=== PATIENT | male | born 1950 | race Caucasian/White ===

== ENCOUNTER → 2023-05-10 15:06 | Outpatient (REF) | payer MEDICARE, OTHER, SELFPAY | LOC: HWRAD 15:06 | PROVIDERS: ATTENDING PHYSICIAN Nurse Practitioner Family | DX: R05.9 Cough, unspecified (principal) | CPT/HCPCS: 71046 ==

== ENCOUNTER 2023-05-13 06:33 | Inpatient (IN) | payer MEDICARE, OTHER, SELFPAY ==
[2023-05-13] VITALS (19 sets, daily range): BP systolic 108–136; BP diastolic 60–78; PULSE 101–125; O2SAT 93; BMI 25.3; BMI 25.1
--- NOTE | 2023-05-13 04:14 | EDRN ---
Pt has PICC L arm - VAT called to notify and draw blood.
--- NOTE | 2023-05-13 04:19 | EDRN ---
VAT at bedside
--- NOTE | 2023-05-13 04:28 | ED.GENMED ---
History of Present Illness
General
Chief Complaint: Breathing Problem
Source: patient and spouse
Exam Limitations: none
Time Seen by Provider: 05/13/23 04:02
Nursing documentation reviewed up to this point in time: agreed with
Travel History
Have you had any contact with someone who has COVID-19?: No
Do you have any symptoms of coronavirus? Fever > 100 degrees, chills, cough, shortness of breath, sore throat, loss of taste or smell, muscle aches, or headache?: No
History of Present Illness
History of Present Illness:
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 He follows with specialist at
[facility].
He complains of over 10-day history of cough, progressively worse with low-grade fever over the past several days. Was evaluated by his primary care physician on May 10 and underwent outpatient chest x-ray May 10 showing bilateral
interstitial parenchymal opacities throughout the right lung and in the left upper lobe concerning for interstitial pneumonia. He was started on 10-day course of Levaquin 750 mg on May 10.
He has been using his leave albuterol nebulizer twice daily but complains of persisting cough, generalized weakness that has worsened throughout the day today with onset of hypoxia with pulse ox in the 70s to 80s tonight, early intervention specialist prompting ED
visit. Cough had been nonproductive but he now notes whitish phlegm production tonight. He denies leg pain or swelling.
No close contacts with similar symptoms. No recent travel.
Testing for COVID-19, influenza and RSV on May 10 all returned negative.
He has history of bilateral pneumonia 1 month after stem cell transplant September 2022, treated with antibiotic and a persistent cough required a course of oral steroids which were then discontinued.
Tacrolimus was discontinued 1 month ago.
He has left upper extremity PICC line in place for frequent CBCs. PICC line is scheduled for removal next week and he has an appointment with his transplant specialist at [place] on May 16.
Past History
Past History
ED Past Medical History: Asthma, HTN, Hypercholesterolemia, NIDDM (Impaired fasting glucose) and Other (Pneumonia, myelodysplastic disorder status post stem cell transplant September 2022; prior history of C. difficile colitis)
ED Past Surgical History: Appendectomy and Other (Bone marrow transplant September 2022)
Social History
Tobacco: Former smoker (Quit smoking over 10 years ago)
Alcohol: None
Personal:
Living: with family
Employment: Retired
Family History
Family History: Other (Noncontributory)
Phy Exam
Physical Exam
Physical Exam:
GENERAL: 80-year-old gentleman appears his stated age, awake and alert, mild to moderate resting tachypnea initially with initial pulse ox in the 80s. Resolution of tachypnea with nasal cannula oxygen at 3 L. Pulse ox is improved to 96 to 98%.
EYE: anicteric
NECK: Supple, nontender, no meningismus, no significant adenopathy. No JVD.
ENT: Lips are dry. Oral mucosa is minimally dry. No rhinorrhea.
CARDIAC: Regular rate and rhythm. no murmur.
LUNGS: Mild resting tachypnea, fine, scattered rhonchi clear with cough.
ABDOMEN: Soft, nondistended, without focal tenderness, normoactive BS.
NEUROLOGICAL: Alert and oriented x3, no focal neuro deficits.
SKIN: Mildly hot to touch and dry, normal color, skin intact. No rash.
MUSCULOSKELETAL: No C/C/E. peripheral pulses are full and equal b/l. No palpable tenderness.
PSYCH: Normal and appropriate interaction.
Scores
Heart Failure Risk
Heart Failure Risk Score: Not Applicable
Course
Orders/Labs/Results
Orders:
Orders
05/13/23 04:07
EKG [Electrocardiogram (*1)] Urgent
Reason for Study: Shortness of Breath
EKG- Treatment ONCE
05/13/23 04:10
CR Chest - 2 Views Urgent
Comment:
Reason For Exam: cough, hypoxia
05/13/23 04:31
Complete Blood Count/With Diff Urgent
Comprehensive Metabolic Panel Urgent
Lactic Acid Urgent
NT-proBNP Urgent
Procalcitonin Urgent
PCT Algorithmm Indication: Respiratory
Troponin I Urgent
05/13/23 05:28
COVID-19 Antigen Urgent
Source: Nasal Swab
Influenza A+B Rapid Molecular Urgent
LUX Source: Nasal Swab
Specimen Description:
05/13/23 05:38
Levalbuterol [Xopenex 1.25 mg Inhalant Solution] 1.25 mg INH R NOW STA
05/13/23 05:39
Sputum Culture [Respiratory Culture/Gram Stain] Urgent
LUX Source: Sputum
Specimen Description:
Abnormal Lab Results
05/13/23
04:31
WBC 13.6 H 10^3/uL
(4.8-10.8)
RBC 2.36 L 10^6/uL
(4.70-6.10)
Hgb 9.0 L g/dL
(13.0-18.0)
Hct 25.6 L %
(39.0-52.0)
MCV 108.5 H fL
(80.0-94.0)
MCH 38.1 H pg
(27.0-31.0)
Abs Immat Gran (auto) 0.2 H 10^3/uL
(0-0.05)
Absolute Neuts (auto) 11.4 H 10^3/uL
(1.4-6.5)
Absolute Lymphs (auto) 0.5 L 10^3/uL
(1.2-3.4)
Absolute Monos (auto) 1.3 H 10^3/uL
(0.1-0.6)
Immature Gran % 1.1 H %
(0-0.5)
Neutrophils % 84.2 H %
(42.2-75.2)
Lymphocytes % 3.5 L %
(20.5-51.1)
Monocytes % 9.4 H %
(1.7-9.3)
Glucose 126 H mg/dl
(70-99)
Alkaline Phosphatase 159 H U/L
(38-126)
Total Protein 6.1 L g/dl
(6.3-8.2)
Albumin 3.4 L g/dl
(3.5-5.0)
05/13/23 04:31
05/13/23 04:31
Vital Signs
Initial and Last Documented VS:
Initial Vital Signs
Temp Pulse Resp BP Pulse Ox
98.8 F 114 24 136/73 86
05/13/23 03:53 05/13/23 03:53 05/13/23 03:53 05/13/23 03:53 05/13/23 03:53
Last Documented Vital Signs
Temp Pulse Resp BP Pulse Ox
98.8 F 106 20 124/70 93
05/13/23 03:53 05/13/23 06:00 05/13/23 06:00 05/13/23 06:00 05/13/23 06:00
MDM/Problems Addressed
Differential Diagnosis Includes:
Acute hypoxic respiratory failure with over 1 week history of cough, low-grade fever. Recent chest x-ray showing lacy interstitial fullness concerning for interstitial pneumonia.
Concern for atypical pneumonia such as viral pneumonia, bacterial interstitial pneumonitis.
Although tacrolimus discontinued 1 month ago, not currently on oral steroids he is maintained on inhaled corticosteroids and maintained on atovaquone for PCP prophylaxis. Must consider atovaquone failure�acute PCP pneumonia.
Other consideration is interstitial fibrosis, exacerbation of asthma, CHF.
No prior history of thromboembolism.
Will check labs including BNP, procalcitonin. Will check chest x-ray.
If sputum produced will collect sample.
Due to acute hypoxic respiratory failure requiring supplemental oxygen patient will require acute hospitalization.
Chronic conditions affecting care: DM (Impaired fasting glucose), HTN, Asthma and Immunosuppressed
*Radiology
Radiology exam reviewed: radiology read reviewed (Chest x-ray shows interval increase in density of any irregular shaped airspace opacities in both lungs with increased interstitial markings consistent with severe bilateral pneumonia.)
*Pulse Oximetry
Patient hypoxic: yes
*EKG
Interpreted by ED Provider?: Yes
Comparison EKG: no comparison EKG present
Rate: normal
Rhythm: sinus
[place]: normal axis
Interval: normal interval
QRS Pattern: normal QRS
Ischemia: no ischemia
*[place]ward Interpretation
Rate: normal
Interpretation: normal
Rhythm: sinus
*Critical Care Note
Total Time (30-74mins, 75-104mins- exclusive of procedures): Not Applicable
Update Note
Update Note:
Chest x-ray shows worsening bilateral interstitial infiltrates concerning for viral pneumonitis, bacterial interstitial pneumonitis, acute inflammatory interstitial disease is also a possibility, PCP pneumonitis is a possibility as well.
Clearly he has failed broad-spectrum outpatient antibiotics. This along with acute hypoxic respiratory failure he requires acute hospitalization.
He does have prior history of C. difficile, maintained on vancomycin 125 mg twice daily.
Patient will require broadening of antibiotics and thus is at risk for recurrent C. difficile colitis.
Labs show mildly elevated white blood cell count of 13.6, mild anemia with hemoglobin of 9.0, macrocytic indices. Left shift.
Chemistries show minimally elevated random glucose of 126, troponin is negative. BNP unremarkable of 382.
Procalcitonin is pending.
Will admit to hospitalist service.
Will discuss antibiotic coverage with adniting hospitalist.
ED Attending Note
-
Portions of this chart may have been created with voice recognition software.� Occasional wrong word or��sound alike� substitutions may have occurred due to the inherent limitations of voice recognition software.
Discharge Plan
Departure
Patient Disposition: Admit
Date of Disposition: 05/13/23
Time of Disposition: 05:26
Admit to: Telemetry
Admit to doctor: Adolph
Presentation/result/management discussed w/ accepting MD/DO: Hospitalist
Condition: Fair
Discharge Problem:
Bilateral interstitial pneumonia, Acute hypoxemic respiratory failure, Bone marrow transplant status
Prescriptions:
No Action
atorvastatin 10 mg Tablet
10 mg PO QPM
valacyclovir 1 gram Tablet
1,000 mg PO DAILY
vancomycin 125 mg Capsule
125 mg PO Q12H
famotidine 20 mg Tablet
20 mg PO BID
amlodipine 10 mg Tablet
10 mg PO DAILY
budesonide 0.25 mg/2 mL Suspension For Nebulization
0.25 mg INHALATION BID
levalbuterol HCl 1.25 mg/3 mL Solution For Nebulization
1.25 mg INHALATION BID
multivitamin with minerals Tablet
1 tab PO DAILY
hydrocortisone 2.5 % Ointment
1 applic TOPICAL TID
Patient Comments:
on head
ipratropium bromide 0.02 % Solution
2.5 ml INHALATION BID
atovaquone 750 mg/5 mL Suspension
1,500 mg PO DAILY
voriconazole 200 mg Tablet
200 mg PO BID
cholecalciferol (vitamin D3) 25 mcg (1,000 unit) Tablet
25 mcg PO DAILY
guaifenesin [Mucinex] 600 mg Tablet Extended Release 12hr
600 mg PO BID
levofloxacin [Levaquin] 750 mg Tablet
750 mg PO DAILY
Referrals:
Flaquito Chavez CRNP [Family Provider] -
Interventions
Interventions:
*Risk Screen - Suicide Last Done: 05/13/23 03:53
*General Assessment Last Done: 05/13/23 03:53
*Neglect/Abuse Screening Last Done: 05/13/23 03:53
ED- Fall Risk Assessment Last Done: 05/13/23 04:59
*ED COVID-19 Vaccine History Last Done: 05/13/23 04:05
ED- Cardiac Assessment Last Done: 05/13/23 04:15
ED- Pulmonary Assessment Last Done: 05/13/23 04:15
[2023-05-13 04:43] LABS: % Basophils 0.5 % (0-2); % Eosinophils 1.3 % (0-6); % Immature Granulocytes 1.1 % (0-0.5); % Lymphocytes 3.5 % (20.5-51.1); % Monocytes 9.4 % (1.7-9.3); % Neutrophils 84.2 % (42.2-75.2); Absolute Basophils 0.1 10^3/uL (0-0.2); Absolute Eosinophils 0.2 10^3/uL (0-0.7); Absolute Immature Granulocytes 0.2 10^3/uL (0-0.05); Absolute Lymphocytes 0.5 10^3/uL (1.2-3.4); Absolute Monocytes 1.3 10^3/uL (0.1-0.6); Absolute Neutrophils 11.4 10^3/uL (1.4-6.5); Hematocrit 25.6 % (39.0-52.0); Mean Corp Hgb Conc. 35.2 g/dL (33.0-37.0); Mean Corpuscular Hgb 38.1 pg (27.0-31.0); Mean Corpuscular Volume 108.5 fL (80.0-94.0); Mean Platelet Volume 9.6 fL (7.4-10.4); Nucleated Red Blood Cells % 0 % (-); Platelet Count 296 10^3/uL (130-400); Red Blood Cell Count 2.36 10^6/uL (4.70-6.10); Red Cell Dist. Width 12.7 % (11.5-14.5); White Blood Cell Count 13.6 10^3/uL (4.8-10.8)
[2023-05-13 05:03] LABS: Lactic Acid 0.9 mmol/L (0.7-2.0)
[2023-05-13 05:11] LABS: ALT (SGPT) 49 U/L (0-50); AST (SGOT) 43 U/L (17-59); Albumin 3.4 g/dl (3.5-5.0); Alkaline Phosphatase 159 U/L (38-126); Blood Urea Nitrogen 20 mg/dl (9-20); Calcium 8.8 mg/dl (8.4-10.2); Carbon Dioxide 24 mmol/L (22-30); Chloride 106 mmol/L (98-107); Estimated Creatinine Clearance 65 ml/min; Glucose 126 mg/dl (70-99); Potassium 4.1 mmol/L (3.5-5.1); Sodium 136 mmol/L (135-145); Total Bilirubin 0.5 mg/dl (0.2-1.3); Total Protein 6.1 g/dl (6.3-8.2); eGFR > 60.00
[2023-05-13 05:14] LABS: Procalcitonin 0.11 ng/ml (0.0-0.25)
[2023-05-13 05:17] LABS: NT-proBNP 382 pg/ml; Troponin I < 0.012 ng/ml
[2023-05-13] MEDS: XOPENEX 1.25 MG INHALANT SOLUTION INH (05:47)
[2023-05-13 06:11] LABS: COVID-19 Antigen Negative (Negative)
--- NOTE | 2023-05-13 06:29 | HPS.HSE ---
Family Physician
-
Family Physician: TIMO Kaiser
Chief Complaint
-
SOB
History of Present Illness
Patient is a 72y M with PMH significant for MDS s/p bone marrow transplant who presents to ED complaining of SOB. Patient states that he has a chronic, hacking cough. He noted a change in the quality of his cough on Sunday with some mucus
production, increased fatigue and increased SOB. He noted temperatures at home 99 to 100.4. He was seen by his PCP on and tested for COVID, flu and RSV (which were reportedly negative). He was sent for CXR which showed bilateral
infiltrates and was started on levofloxacin 750mg daily. Patient states that he has not felt improved despite the abx. He notes that his symptoms have progressed with worsening dyspnea and fatigue. This evening, he noted his SpO2 at home fell
into the 70s and he presented to the ED for further evaluation.
Patient underwent bone marrow transplant at [facility] in September 2022 for MDS.
notes that patient developed patchy bilateral opacities following his transplant and he was treated with high doses of steroids for this.
He remains on some prophylactic medications; although he is no longer on prednisone or immunosuppressant medications according to his current med list.
Medical History
Past Medical History
Past Medical History: Reports Other
Additional Past Medical History:
Myelodysplastic Syndrome
Hypertension
Cough Variant Asthma
Benign Essential Tremor
CDiff Colitis
Past Surgical History: Reports Other
Additional Past Surgical History:
T&A
Bone Marrow Transplant
Social History
Tobacco: Former Smoker
Alcohol: None
Drug: None
Personal:
Living: With Family
Family History
Family History: Not pertinent
Allergies / Home Medications
Allergies reflects when Allergies were last updated in [facility].
Home Medications with original date entered in [facility]
Allergy/Medication List:
Allergies
Allergy/AdvReac Type Severity Reaction Status Date / Time
No Known Allergies Allergy Unverified 05/13/23 04:00
Home Medications
amlodipine 10 mg tablet 10 mg PO DAILY 05/13/23
atorvastatin 10 mg tablet 10 mg PO QPM 05/13/23
atovaquone 750 mg/5 mL oral suspension 1,500 mg PO DAILY 05/13/23
budesonide 0.25 mg/2 mL suspension for nebulization 0.25 mg inhalation BID 05/13/23
cholecalciferol (vitamin D3) 25 mcg (1,000 unit) tablet 25 mcg PO DAILY 05/13/23
famotidine 20 mg tablet 20 mg PO BID 05/13/23
guaifenesin 600 mg tablet, extended release 12 hr (Mucinex) 600 mg PO BID 05/13/23
hydrocortisone 2.5 % topical ointment 1 applic topical TID 05/13/23
ipratropium bromide 0.02 % solution for inhalation 2.5 ml inhalation BID 05/13/23
levalbuterol HCl 1.25 mg/3 mL solution for nebulization 1.25 mg inhalation BID 05/13/23
levofloxacin 750 mg tablet 750 mg PO DAILY 05/13/23
multivitamin with minerals 1 tab PO DAILY 05/13/23
valacyclovir 1 gram tablet 1,000 mg PO DAILY 05/13/23
vancomycin 125 mg capsule 125 mg PO Q12H 05/13/23
voriconazole 200 mg tablet 200 mg PO BID 05/13/23
Review of Systems
-
History Source: Patient
A 12 point ROS was completed and negative except as noted: Yes
Constitutional: Reports Fever and Fatigue; Denies Night Sweats or Chills
EENT: Denies Sore Throat
Respiratory: Reports Cough and Trouble Breathing; Denies Hemoptysis
Cardiac: Denies Chest Pain, Diaphoresis or Palpitations
Abdomen/GI: Denies Abdominal Pain, Nausea, Vomiting or Diarrhea
: Denies Dysuria, Frequency or Flank Pain
Musculoskeletal: Denies Joint Pain or Edema
Neurological: Denies Dizzy or Headache
Psych: Denies Depression or Anxiety
Physical Exam
Vital Signs
Vital Signs
Temp Pulse Resp BP Pulse Ox
98.8 F 106 20 124/70 93
05/13/23 03:53 05/13/23 06:00 05/13/23 06:00 05/13/23 06:00 05/13/23 06:00
Physical Exam
General: Other (72y M in no acute distress.)
HEENT: Moist mucous membranes and PERRLA
Respiratory: Other (Rales scattered throughout all lung hernandez. No wheezes / rhonchi.)
Cardiac: S1/S2 and Regular Rhythm; No Murmur
GI: Soft, Non Tender, Non Distended and Normal Bowel Sounds
Musculoskeletal: No Clubbing, No Cyanosis and No Edema
Neuro: AO x 3
Laboratory Results
-
05/13/23 04:31
05/13/23 04:31
Laboratory Results
Lactic Acid 0.9 mmol/L (0.7-2.0) 05/13/23 04:31
Total Bilirubin 0.5 mg/dl (0.2-1.3) 05/13/23 04:31
AST 43 U/L (17-59) 05/13/23 04:31
ALT 49 U/L (0-50) 05/13/23 04:31
Alkaline Phosphatase 159 U/L (38-126) H 05/13/23 04:31
Troponin I < 0.012 ng/ml 05/13/23 04:31
Impression/Plan
-
A/P: Patient is a 72y M with PMH significant for asthma, HTN and MDS s/p bone marrow transplant who presents to ED c/o fatigue, SOB and hypoxemia.
Acute Hypoxemic Respiratory Failure
Bilateral Pneumonia / Pneumonitis
- Admit for further evaluation and treatment.
- CXR with significant patchy bilateral infiltrates.
- Diffuse rales on exam c/w viral or inflammatory process.
- Procal is normal, COVID / influenza are negative (and reportedly were as OP as well).
- Would hold further levofloxacin or other abx for now.
- IV steroids for possible inflammatory process.
- Supportive care, supplemental O2, nebs, etc.
- Pulmonary evaluation for additional work-up / recommendations.
- ? PJP pneumonia. Patient is on atovaquone for prophylaxis.
- Follow for clinical improvement.
MDS
- Stable. Hgb slightly decreased from recent baseline (10) and WBC slightly increased.
- Continue current prophylactic medications.
- Follow cell counts for changes.
- Patient is followed at [facility]. Dr. David / Melissa Lincoln.
CDiff Colitis
- Patient had loose stools for quite some time following transplant.
- Diagnosed with CDiff colitis 2 months ago and has been on tapering vancomycin since that time.
- Taper was halted given recent pneumonia / abx.
- Hold further abx for pneumonia as noted above.
- Continue vancomycin at current dose / frequency for now. Can resume taper as an outpatient.
- Follow for any changes in bowel habits.
Cough Variant Asthma
- Patient is on budesonide maintenance.
- Uses Xopenex MDI infrequently.
- No wheezing on exam and no significant increase in cough to suggest acute exacerbation.
Benign Hypertension
- BP is stable. Continue amlodipine.
DVT Prophylaxis: Lovenox
Code Status: Full
[2023-05-13] MEDS: FIRVANQ PO (10:07)
[2023-05-13] MEDS: NORVASC PO (10:07)
[2023-05-13] MEDS: PEPCID PO (10:07)
[2023-05-13] MEDS: VALTREX PO (10:08)
[2023-05-13] MEDS: DECADRON 4 MG IV ×2 (10:09→16:50)
[2023-05-13] MEDS: VFEND PO (10:09)
[2023-05-13] MEDS: MUCINEX 600 MG PO ×2 (10:10→20:50)
[2023-05-13] MEDS: MEPRON SUSPENSION 1500 MG PO (10:10)
[2023-05-13 12:23] LABS: Iron 34 ug/dl (49-181)
[2023-05-13 12:34] LABS: Percent Saturation 19 % (20-50); Total Iron Binding Capacity 175 ug/dl (261-462)
[2023-05-13 12:44] LABS: Erythrocyte Sed Rate 109 mm/hour (0-20)
[2023-05-13 13:15] LABS: Vitamin B12 381 pg/ml (239-931)
--- NOTE | 2023-05-13 13:54 | W.PN.UPDATE ---
Update Note
Progress Note Update
Lab/images/charts reviewed
Seen and examined
History of MDS status postchemotherapy, status post allogenic stem cell transplant on September 21, 2022 -post transfer patient had developed pneumonia and at that time it was felt to be related to posttransplant reaction. patient was started on high-dose
steroids (per family 1 g/d) with which patient symptoms improved.
Today chest x-ray showing bilateral patchy infiltrates.
Pulmonology and ID involved in care. ID recommended for patient to be started on azithromycin for atypical coverage. Check sputum culture/Legionella/Streptococcus pneumonia urine antigen/respiratory viral panel.
I discussed with transplant center in agreement with trial of steroids and patient started on methylprednisolone 50 mg IV every 8 hours. Discontinue IV dexamethasone 4 mg every q8h.
IV Protonix for GI prophylaxis.
If no response with steroid therapy will require bronc with biopsy or transfer to [facility],
--- NOTE | 2023-05-13 13:58 | CON.ID ---
Addendum entered and electronically signed by Christine Concepcion MD 05/13/23 15:39:
rash on bilateral cheeks
Original Note:
Consultation
-
Date/Time Consultation Requested: 05/13/23 13:45
Date/Time Consultation Performed: 05/13/23 13:58
Requesting Provider: Dr Tamayo
Performing Provider: Dr Concepcion
Reason for Consultation: bilateral Pneumonia in immunocompromised pt
Chief Complaint / Past History
Chief Complaint
shortness of breath
History of Present Illness
Mr Henry is a 72 year old male s/p BMT September 2022 following with [facility] (h/o lung GVHD post transplant, on vori/valacyclovir/atovaquone ppx; tacrolimus stopped a few months ago per patient) who presented here today for fever, 10 day history of cough -
nonproductive. Saw his PCP 05/10 and CXR done notable for interstitial infiltrates throughout the right lung and the Left upper lobe. He was started on levofloxacin 750 05/10 (3 days ago) as well as albuterol however cough has been progressive and
he has new onset hypoxia with pulse Ox 70-80s today prompting him to present here. Today cough progressed from nonproductive to productive of whitish phlegm. Testing for COVID-19, influenza and RSV on May 10 all returned negative. No sick
contacts or travel. Of note with PICC line for frequent blood draws and is scheduled for removal 05/16.
Reports a history of bilateral lung infiltrates shortly after transplant diagnosed as GVHD and treated with steroids
Reports a history of months of diarrhea, then had colonoscopy at [facility] in [place], colonoscopy 'fine' but C diff diagnosed. They were going to complete a short course of oral vanc but when diagnosed with pneumonia then oral vanc prophylaxis was continued
Past History
Additional Past Medical History:
Asthma, HTN, Hypercholesterolemia, NIDDM (Impaired fasting glucose) and Other (Pneumonia, myelodysplastic disorder status post stem cell transplant September 2022; prior history of C. difficile colitis)
Additional Past Surgical History:
Appendectomy and Other (Bone marrow transplant September 2022)
Allergy History:
No Known Allergies Allergy (Unverified 05/13/23 04:00)
Medications Reviewed: Yes
Social History
Tobacco: Former Smoker
Alcohol: None
Personal:
Family History
Family History: Not Pertinent
Review of Systems
Review of Systems
General: Negative Fever or Chills
All systems: All other systems were reviewed and were negative
Vital Signs
Temp Pulse Resp BP Pulse Ox
98.8 F 96 18 119/70 94
05/13/23 03:53 05/13/23 12:00 05/13/23 12:00 05/13/23 12:00 05/13/23 12:00
Physical Exam
Physical Exam
Constitutional: No Acute Distress
Cardiovascular: Regular Rate and S1/S2; Negative Murmur or Rub
Pulmonary: Clear and Symmetric; Negative Wheezes, Rales or Rhonchi
Gastrointestinal: Soft, Non Tender, Non Distended and Normal Bowel Sounds
Skin: Warm and Dry; Negative Rash or Jaundice
Lab / Diagnostic Study Results
05/13/23 04:31
05/13/23 04:31
Abs Immat Gran (auto) 0.2 10^3/uL (0-0.05) H 05/13/23 04:31
Absolute Neuts (auto) 11.4 10^3/uL (1.4-6.5) H 05/13/23 04:31
Absolute Lymphs (auto) 0.5 10^3/uL (1.2-3.4) L 05/13/23 04:31
Absolute Monos (auto) 1.3 10^3/uL (0.1-0.6) H 05/13/23 04:31
Absolute Basos (auto) 0.1 10^3/uL (0-0.2) 05/13/23 04:31
Immature Gran % 1.1 % (0-0.5) H 05/13/23 04:31
Neutrophils % 84.2 % (42.2-75.2) H 05/13/23 04:31
Lymphocytes % 3.5 % (20.5-51.1) L 05/13/23 04:31
Monocytes % 9.4 % (1.7-9.3) H 05/13/23 04:31
Eosinophils % 1.3 % (0-6) 05/13/23 04:31
Basophils % 0.5 % (0-2) 05/13/23 04:31
ESR 109 mm/hour (0-20) H 05/13/23 11:36
Lactic Acid 0.9 mmol/L (0.7-2.0) 05/13/23 04:31
C-Reactive Protein 225.70 mg/L (0.0-10.00) H 05/13/23 11:36
Procalcitonin 0.11 ng/ml (0.0-0.25) 05/13/23 04:31
Microbiology Results
Micro:
05/13/23 05:28 Influenza Types A & B (YANELIS) - Final
Nasal Swab Negative for Influenza A & B, NAAT
Negative results must be combined with clinical observations
and patient history.
Nucleic Acid Amplification test (NAAT)performed on the
[email or web address] ID NOW platform.
Assessment / Plan
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
Immunosuppression
Pneumonia
H/o Lung gvhd
H/o C difficile
- GVHD on the differential with recent cessation of tacrolimus, interstitial pattern, history suggestive of previous GVHD of the lungs, rash but is a diagnosis of exclusion, will leave a message for his transplant team
- discussed with pulmonary - I would request lung biopsy if safe/feasible and no other diagnosis made
- blood cultures x2 now
- sputum culture if able to obtain
- legionella and s pneumo urine ags
- covid ag negative here again for a total of two negative covid tests this week
- influenza pcr neg
- resp viral panel ordered
- crp notable at 225, procal 0.11
- CT chest ordered
- on ppx with atovaquone, valacyclovir and vori
- stop levofloxacin, start azithromcyin (lower risk of recurrent c diff)
- follow qtc, was acceptable
- not on steroids chronically
- Dr Worley director business integration for [facility] - called and reviewed with him, he is in agreement with trial of steroids and will start, he will notify Dr Montemayor and if she prefers transfer then I would help arrange
- start methylpred 50 mg IV q8hrs
- protonix while on high dose steroids - ulcer ppx
- if no response to steroids then would request bronch with biopsy
- follow clinically
Care Review
Plan reviewed with: Physician (Dr Mathis)
[2023-05-13 14:38] LABS: LDH 241 U/L (120-246)
--- NOTE | 2023-05-13 15:00 | CON.PUL ---
Addendum entered and electronically signed by Davis Mathis MD 05/13/23 15:35:
Reviewed CT chest. Primarily interstitial process, biapical predominant. No evidence of nodular consolidation.
Would prefer repeat chest x-ray 05/14 which I ordered
If significant improvement with 24 to 48 hours of steroids, may be able to avoid bronchoscopic evaluation
Will also await input from [facility] team (Kimberlee Montemayor)
Original Note:
Consultation
Consultation Request
Date/Time Consultation Requested: 05/13
Date/Time Consultation Performed: 05/13
Reason for Consultation: Hypoxia, abnormal chest x-ray
Medical History
-
History of Present Illness:
History obtained from the patient, family at bedside, reviewing hospital records and outpatient records. 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 This was complicated by
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 He was discharged 11/07/2022 on oxygen therapy. He has been off
oxygen therapy since fall 2022, doing well. Of note he was on tacrolimus therapy recently discontinued March 2019 for which she was doing well according to the patient. He remains on voriconazole and valacyclovir therapy in the interim.
05/09/2023, he noted increased shortness of breath, hypoxia at night, low-grade fevers with progress. Through his primary physician and communication with [facility] transplant team he was started on Levaquin therapy. Despite this he had increased
shortness of breath and noticed worsening oxygenation, saturation 70% worse while lying flat. For this reason he brought himself into [facility]. Upon arrival, afebrile, pulse 114, breathing at 24, blood pressure 136/73, 86%. Chest x-ray
suggesting worsening interstitial changes when compared to x-ray from just 1 week prior. Procalcitonin was normal. Patient was given IV Decadron but otherwise no other antibiotics provided. Of note patient is on atovaquone therapy at home.
Presently he is feeling well, on oxygen therapy. Denies hemoptysis, nausea, abdominal pain, diarrhea, falls, syncope. His diarrhea resolved since being on oral vancomycin
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
history of C. difficile colitis March 2023 treated with oral vancomycin hospitalized at [facility], hyperlipidemia, colon polyps, benign tremor, tonsillectomy, bone marrow biopsy January 2022. Mild sleep apnea not on therapy
Past Medical History
Past Medical History: None (See above)
Past Surgical History: None (See above)
Social History
Tobacco: Former Smoker ([id number], quit age 23. Occasional cigar rare)
Alcohol: None
Drug: None
Personal:
Living: With Family
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 Was in the [employer]. Denies tuberculosis exposure)
Family History
Family History: Other (Father from alcoholism/suicide fifth decade. Mother from COPD seventh decade. Daughter with asthma, sister with asthma. Family history negative for thromboembolic disease, lung cancer)
Allergies / Home Medications
Allergies
Allergy/AdvReac Type Severity Reaction Status Date / Time
No Known Allergies Allergy Unverified 05/13/23 04:00
Home Medications
Medication Instructions Recorded Confirmed Last Taken Type
amlodipine 10 mg tablet 10 mg PO DAILY 05/13/23 05/13/23 Unknown History
atorvastatin 10 mg tablet 10 mg PO QPM 05/13/23 05/13/23 Unknown History
atovaquone 750 mg/5 mL oral 1,500 mg PO DAILY 05/13/23 05/13/23 Unknown History
suspension
budesonide 0.25 mg/2 mL suspension 0.25 mg inhalation BID 05/13/23 05/13/23 Unknown History
for nebulization
cholecalciferol (vitamin D3) 25 25 mcg PO DAILY 05/13/23 05/13/23 Unknown History
mcg (1,000 unit) tablet
famotidine 20 mg tablet 20 mg PO BID 05/13/23 05/13/23 Unknown History
guaifenesin 600 mg tablet, 600 mg PO BID 05/13/23 05/13/23 Unknown History
extended release 12 hr (Mucinex)
hydrocortisone 2.5 % topical 1 applic topical TID 05/13/23 05/13/23 Unknown History
ointment
ipratropium bromide 0.02 % 2.5 ml inhalation BID 05/13/23 05/13/23 Unknown History
solution for inhalation
levalbuterol HCl 1.25 mg/3 mL 1.25 mg inhalation BID 05/13/23 05/13/23 Unknown History
solution for nebulization
levofloxacin 750 mg tablet 750 mg PO DAILY 05/13/23 05/13/23 Unknown History
multivitamin with minerals 1 tab PO DAILY 05/13/23 05/13/23 Unknown History
valacyclovir 1 gram tablet 1,000 mg PO DAILY 05/13/23 05/13/23 Unknown History
vancomycin 125 mg capsule 125 mg PO Q12H 05/13/23 05/13/23 Unknown History
voriconazole 200 mg tablet 200 mg PO BID 05/13/23 05/13/23 Unknown History
Review of Systems
-
All other systems: Negative unless noted (Patient has lost weight since bone marrow transplant but stabilized)
Vitals / Labs / Diagnostic Testing
Vital Signs
Temp Pulse Resp BP Pulse Ox
98.8 F 93 18 117/70 93
05/13/23 03:53 05/13/23 14:30 05/13/23 14:30 05/13/23 14:00 05/13/23 14:30
Lab Data
05/13/23 04:31
05/13/23 04:31
Microbiology
05/13/23 05:28 Nasal Swab Influenza Types A & B (YANELIS) - Final
Negative for Influenza A & B, NAAT
Negative results must be combined with clinical observations
and patient history.
Nucleic Acid Amplification test (NAAT)performed on the
[employer] platform.
Diagnostic Testing:
Physical Exam
-
HEENT: Normocephalic, Anicteric and Other (Narrow posterior oropharynx, no ulcers, no thrush)
Cardiovascular: S1/S2, Regular Rhythm, Murmur (n), Rub (n) and Peripheral Edema (n)
Respiratory: Wheeze (n), Rales (Few scattered posterior), Rhonchi (n) and Non-Labored Respirations
GI: Soft, Non Distended and Non Tender
Neurology: Awake, Alert, Oriented and No Motor Deficits (Able to sit up without assistance)
Skin: Other (No clubbing, cyanosis) and Other (Mild malar rash, mild patchy erythematous rash lower extremity, well-demarcated, no warmth)
General: Comfortable
Assessment
-
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
tacrolimus since March 2023, now presents with 6 days of increased shortness of breath, low-grade fevers, hypoxia, started on Levaquin therapy 05/10/2023, now with progressive hypoxia and progressive interstitial infiltrates, admitted 05/13/2023
Acute hypoxic respiratory insufficiency
Saturation in the 70s at home
86% on room air in the ED
Bilateral pulmonary infiltrates
Progressive in 72 hours
BMT October 2022 (Kimberlee Montemayor at [facility])
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
Chemotherapy (Azacitidine) at [place], April 2022 (Dr. Bland)
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
Treated with meropenem/azithromycin/vancomycin/steroids and etanercept
Off tacrolimus therapy since March 2023
Maintained on atovaquone, valacyclovir, voriconazole prophylaxis
Off prednisone since 12/29/2022
History of C. difficile colitis March 2023
Hospitalized at [facility]
On oral vancomycin
Conditions present prior to admission
Sleep apnea, not treated
Impaired fasting glucose
Required insulin therapy while on steroids
History of colon polyps
Hyperlipidemia
Essential tremor
[id number] history of smoking, quit age 23
Cough variant asthma
Family history of asthma
Plan/recommendations
At this time, patient appears to be comfortable with extremely complex medical history
Salient features are progressive bilateral interstitial infiltrates in the setting of Levaquin therapy, hypoxia which is progressive
Patient has been off steroids since December 2022
He has been off Bactrim therapy prophylaxis since his C. difficile colitis? On atovaquone since
Remains on voriconazole, acyclovir prophylaxis
Patient not able to get vaccines due to bone marrow transplant
Crackles on exam noted
Hypoxia worse while lying supine
Of note, off tacrolimus since March 2023
Moving forward
Differential is broad but given progressive disease in the setting of Levaquin therapy, suspect this is opportunistic infection versus viral infection versus inflammatory process
Patient describes increased malar rash since being off tacrolimus
Unclear if this may represent GVHD
Panculture
Agree with Legionella and pneumococcal urine antigens
Influenza/COVID-negative, respiratory viral panel ordered per ID
It is noted that procalcitonin is normal
Oral vancomycin, voriconazole, valacyclovir, atovaquone continues
We may consider empiric steroid therapy which she is receiving since ED
Repeat daily chest x-ray 05/14 and 05/15
If there is rapid improvement, this would argue for primarily inflammatory process
Bronchoscopy with transbronchial biopsies may be indicated
ID will contact [facility] transplant team
Follow blood sugars while on steroids. Patient required insulin therapy while on steroids in the past
Otherwise we will continue to follow as above
Above reviewed at length with patient and family at bedside
Reviewed with infectious disease
Complex decision making process
Will follow
[2023-05-13] MEDS: ZITHROMAX 500 MG PO (16:50)
[2023-05-13] MEDS: PROTONIX 40 MG PO (16:50)
[2023-05-13] MEDS: SOLU-MEDROL PF 50 MG IV ×2 (16:51→23:40)
[2023-05-13] MEDS: LIPITOR 10 MG PO (17:47)
[2023-05-13] MEDS: LOVENOX 40 MG SC (17:47)
[2023-05-13] MEDS: PEPCID 20 MG PO (20:50)
[2023-05-13] MEDS: FIRVANQ 125 MG PO (20:51)
[2023-05-13] MEDS: VFEND 200 MG PO (20:52)
[2023-05-14 03:17] VITALS: BP 134/79
[2023-05-14 05:26] VITALS: BMI 24.5
[2023-05-14 06:07] LABS: Hematocrit 28.2 % (39.0-52.0); Hemoglobin 9.7 g/dL (13.0-18.0); Mean Corp Hgb Conc. 34.4 g/dL (33.0-37.0); Mean Corpuscular Hgb 37.3 pg (27.0-31.0); Mean Corpuscular Volume 108.5 fL (80.0-94.0); Mean Platelet Volume 9.7 fL (7.4-10.4); Platelet Count 335 10^3/uL (130-400); Red Cell Dist. Width 12.6 % (11.5-14.5); White Blood Cell Count 9.2 10^3/uL (4.8-10.8)
[2023-05-14 06:42] LABS: Blood Urea Nitrogen 28 mg/dl (9-20); Calcium 9.2 mg/dl (8.4-10.2); Carbon Dioxide 22 mmol/L (22-30); Chloride 103 mmol/L (98-107); Estimated Creatinine Clearance 71 ml/min; Glucose 174 mg/dl (70-99); Potassium 4.5 mmol/L (3.5-5.1); Sodium 136 mmol/L (135-145); eGFR > 60.00
[2023-05-14 07:20] VITALS: BP 112/64; BP 119/61; BP 120/71; PULSE 101; PULSE 107; PULSE 112
[2023-05-14] MEDS: SOLU-MEDROL PF 50 MG IV ×2 (08:29→16:03)
[2023-05-14] MEDS: VALTREX 1000 MG PO (08:30)
[2023-05-14] MEDS: MUCINEX 600 MG PO ×2 (08:30→20:49)
[2023-05-14] MEDS: PEPCID 20 MG PO ×2 (08:30→20:48)
[2023-05-14] MEDS: PROTONIX 40 MG PO (08:30)
[2023-05-14] MEDS: ZITHROMAX 500 MG PO (08:30)
[2023-05-14] MEDS: NORVASC 10 MG PO (08:30)
[2023-05-14] MEDS: VFEND 200 MG PO ×2 (08:30→20:48)
[2023-05-14] MEDS: FIRVANQ 125 MG PO ×2 (08:31→20:47)
[2023-05-14] MEDS: MEPRON SUSPENSION 1500 MG PO (08:31)
--- NOTE | 2023-05-14 08:41 | W.PN.ID1 ---
Date of Service
Date of Service: May 14, 2023
Today's Communication
continue steroids
continue azithromycin
continue prophylaxis
Assessment / Plan
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
Immunosuppression
Pneumonia
H/o Lung gvhd
H/o C difficile
ET
- less cough, less O2 requirements; acapella
- GVHD on the differential with recent cessation of tacrolimus, interstitial pattern, history suggestive of previous GVHD of the lungs, rash but is a diagnosis of exclusion
- agree with trial of steroids - if clinically improving may avoid bronch/biopsy
- blood cultures x2 no growth to date
- sputum culture - has not produced one thus far
- legionella and s pneumo urine ags - notified RN that these were not sent yet and to please prioritize these orders
- resp viral panel neg
- markedly elevated inflammatory markers - repeat ESR/CRP/ferritin sunday
- CT chest reviewed - interstitial pattern
- continue on ppx with atovaquone, valacyclovir and vori
- continue azithromycin (lower risk of recurrent c diff)
- qtc remains acceptable
- steroids at 50 mg methylpred 50 q8 which is approximately prednisone 188 mg qday - high dose
- protonix while on high dose steroids - ulcer ppx
- if no response to steroids in several days then would request bronch with biopsy
- discussed atovaquone per patient, I would not stop while on high dose steroids
- follow clinically- further workup pending course; if UOP physicians prefer transfer then I would be in agreement
Chief Complaint
-: Pneumonia and Other (Immunosuppression)
Subjective / Review of Systems
afebrile
bp stable
now on 4L sat 95% - titrated down to 2L - improvement
resolved leukocytosis
improved hgb
esr 109, ferritin 1400
resp viral panel negative
blood cultures no growth to date
ct chest: insteritial pneumonia - agree no nodules
CXR today - my read: more diffuse infiltrates possibly some improvement in the upper lobe consolidations
Vital Signs / Physical Exam
Vital Signs
Vital Signs
Temp Pulse Resp BP Pulse Ox
98.3 F 101 19 120/71 95
05/14/23 07:20 05/14/23 08:30 05/14/23 07:20 05/14/23 08:30 05/14/23 07:20
Objective Data
Lab Data
Lab Results
05/14/23 05:55
05/14/23 05:55
ESR 109 mm/hour (0-20) H 05/13/23 11:36
Estimated Creat Clear 71 ml/min 05/14/23 05:55
Lactic Acid 0.9 mmol/L (0.7-2.0) 05/13/23 04:31
Total Bilirubin 0.5 mg/dl (0.2-1.3) 05/13/23 04:31
AST 43 U/L (17-59) 05/13/23 04:31
ALT 49 U/L (0-50) 05/13/23 04:31
Alkaline Phosphatase 159 U/L (38-126) H 05/13/23 04:31
C-Reactive Protein 225.70 mg/L (0.0-10.00) H 05/13/23 11:36
Most recent labs reviewed.
Micro Results:
05/13/23 17:44 Blood Culture - Pending
Blood/Venous
05/13/23 16:31 Blood Culture - Pending
Blood/Venous
05/13/23 16:51 Influenza Type A (PCR) - Final
Nasalpharynx Not Detected
Influenza Type A (H1) (PCR) - Final
Not Detected
Influenza Type A (H3) (PCR) - Final
Not Detected
Influenza Type B (PCR) - Final
Not Detected
Resp Syncytial Virus Type A (PCR) - Final
Not Detected
Resp Syncytial Virus Type B (PCR) - Final
Not Detected
Adenovirus DNA (PCR) - Final
Not Detected
Human Metapneumovirus (PCR) - Final
Not Detected
Parainfluenza Virus Type 1 (PCR) - Final
Not Detected
Parainfluenza Virus Type 2 (PCR) - Final
Not Detected
Parainfluenza Virus Type 3 (PCR) - Final
Not Detected
Parainfluenza Virus Type 4 - Final
Not Detected
Rhinovirus (PCR) - Final
Not Detected
05/13/23 05:28 Influenza Types A & B (YANELIS) - Final
Nasal Swab Negative for Influenza A & B, NAAT
Negative results must be combined with clinical observations
and patient history.
Nucleic Acid Amplification test (NAAT)performed on the
[employer] platform.
--- NOTE | 2023-05-14 09:03 | W.PN.HOSP.TC ---
Today's Communication/Plan
-
Continue steroids, Zithromax-follow response
Chest x-ray looks similar to yesterday's to me on my review-definitely worse than the
Assessment / Plan
Assessment / Plan
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 October 2022 patient had fevers treated with meropenem, Zithromax steroids and vancomycin. He was
discharged on oxygen but he has been off of oxygen since then.
He has a chronic cough. Recently had some mucus production increased shortness of breath. Saw PCP on tested for COVID flu and RSV which were negative reportedly. Chest x-ray showed bilateral infiltrates and was started on Levaquin. He
has not felt better with antibiotics and he noted that his pulse ox was falling.
He stated he was about to stop Atovaquone as OP , but then got started here .
Patient also states that he has had issues with waking up multiple times at nighttime to pass urine and then he also will have a bowel movement along with that. Patient is not on tacrolimus since March 2022
CVS: S1-S2 normal
Chest:few rales
Abdomen: Soft, NT / Bowel sounds present
Extremities: No edema, normal pulses
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
# Acute hypoxic respiratory failure
Currently on 4 L of oxygen
Reported saturation 70s at home
Mid 80s in the ER
Bilateral pulmonary infiltrates-unknown etiology -GVHD is on the differential
Started on steroids and Zithromax
Sputum culture if possible, Legionella and pneumococcal antigens.
COVID and influenza negative
Respiratory viral panel-negative
May need bronchoscopy if no improvement
Pulmonary and infectious disease consultations appreciated
# MDS
Status post chemotherapy at [place] [facility] in May [address] Bland
Bone marrow transplant 09/21/2022
October 2022-needed antibiotics meropenem, Zithromax, vancomycin ,etanercept and steroids for fevers
Off prednisone since December 2022
Off tacrolimus since March 2022
On atovaquone, valacyclovir , voriconazole prophylaxis
# C. difficile colitis-March 2023 treated with vancomycin
Currently on vancomycin twice daily-unclear when this was restarted versus patient was always on this since March.
# Hyperglycemia-was on insulin when he was on steroids. Blood sugars and use insulin as needed. Check a hemoglobin A1c
# Hyperlipidemia-continue atorvastatin
# Anemia-likely secondary to chronic disease
Iron studies noted
# Hypertension-continue amlodipine
# Benign tremors
# Frequent urination at night-recommended prostate evaluation as outpatient with urology
# Chronic cough/asthma
On budesonide, ipratropium, levalbuterol twice daily as outpatient
# Sleep apnea-not on treatment
# Sy-qsedbt-vyscsfnwov cigars
# DVT prophylaxis-Lovenox
# Full code
Discussed with nursing
Discussed with infectious disease and pulmonary
Dr. Tamayo as well as ID spoke to Renan yesterday the plan is to see response on high-dose steroids for 24 to 48 hours.
Continue current treatment
52 min
Anticipated Discharge: > 48 hours
Subjective/Interval History
-
Date of Service: May 14, 2023
Objective Data
-
Labs:
Laboratory Results
05/14/23
05:55
WBC 9.2
Hgb 9.7 L
Hct 28.2 L
Plt Count 335
Sodium 136
Potassium 4.5
Chloride 103
Carbon Dioxide 22
BUN 28 H
Creatinine 1.0
Glucose 174 H
Calcium 9.2
Vital Signs:
Vital Signs
Temp Pulse Resp BP Pulse Ox
98.3 F 101 19 120/71 95
05/14/23 07:20 05/14/23 08:30 05/14/23 07:20 05/14/23 08:30 05/14/23 07:20
I&O
05/13/23 05/14/23 05/15/23
06:59 06:59 06:59
Intake Total 480 / 480
Balance 480 / 480
[2023-05-14 11:08] LABS: Glucose - Point of Care 199 mg/dl (70-99)
[2023-05-14 11:27] VITALS: BP 132/72
[2023-05-14] MEDS: XOPENEX 1.25 MG INHALANT SOLUTION INH ×2 (11:48→20:02)
--- NOTE | 2023-05-14 12:28 | W.PN.PUL3 ---
Today's Communication / Plan
-
Continue IV corticosteroids
Monitor blood sugars
Continue nebulizer therapy
Hold budesonide for now
Continue Zithromax
Follow cultures
Wean down oxygen
Assessment
-
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
tacrolimus since March 2023, now presents with 6 days of increased shortness of breath, low-grade fevers, hypoxia, started on Levaquin therapy 05/10/2023, now with progressive hypoxia and progressive interstitial infiltrates, admitted 05/13/2023
Acute hypoxic respiratory insufficiency
Saturation in the 70s at home
86% on room air in the ED
Bilateral pulmonary infiltrates
Progressive in 72 hours
BMT October 2022 (Kimberlee Montemayor at [facility])
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
Chemotherapy (Azacitidine) at [place], April 2022 (Dr. Bland)
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
Treated with meropenem/azithromycin/vancomycin/steroids and etanercept
Off tacrolimus therapy since March 2023
Maintained on atovaquone, valacyclovir, voriconazole prophylaxis
Off prednisone since 12/29/2022
History of C. difficile colitis March 2023
Hospitalized at [facility]
On oral vancomycin
Conditions present prior to admission
Sleep apnea, not treated
Impaired fasting glucose
Required insulin therapy while on steroids
History of colon polyps
Hyperlipidemia
Essential tremor
66-[id number]-rnwr history of smoking, quit age 23
Cough variant asthma
Family history of asthma
Plan/recommendations
No change in clinical condition since overnight: Remains on supplemental oxygen.
Currently 4 L of supplemental oxygen-pulse ox 93%. Which is new for him.
-
Salient features are progressive bilateral interstitial infiltrates in the setting of Levaquin therapy, hypoxia which is progressive
Patient has been off steroids since December 2022
He has been off Bactrim therapy prophylaxis since his C. difficile colitis? On atovaquone since
Remains on voriconazole, acyclovir prophylaxis
Patient not able to get vaccines due to bone marrow transplant
Of note, off tacrolimus since March 2023
-
Differential diagnosis includes inflammatory process versus infectious versus opportunistic infection.
Continue with current plan:
Trial of steroids IV equivalent 250 mg of prednisone.
Daily chest x-ray, if there is good response then likely inflammatory process.
Continue to wean down oxygen as able
All cultures negative so far: On azithromycin. Case discussed with infectious disease plan
Case discussed with primary team.
Transplant team at [facility] also has been contacted. They were okay with trial of prednisone.
-
Negative Legionella and pneumococcal urine antigens
Influenza/COVID-negative, respiratory viral panel-all negative.
On Zithromax per infectious disease.
It is noted that procalcitonin is normal
Oral vancomycin, voriconazole, valacyclovir, atovaquone continues
-
Bronchoscopy with transbronchial biopsies may be indicated, if there is no improvement.
-
History of asthma, follows up with Dr. Huggins. Not bronchospastic on exam.
Continue Xopenex
Continue Atrovent
Hold budesonide while on high doses of steroids.
Follow blood sugars while on steroids. Patient required insulin therapy while on steroids in the past
Patient updated in detail by Dr. Carvajal 05/14/2023.
Reviewed with infectious disease and primary team
Again, complex decision making process
Will follow.
-
Follow-up with Dr. Huggins after discharge
Subjective Data
-
Date of Service:
Date of Service: May 14, 2023
Chief Complaint: Pulmonary Follow Up (Acute hypoxemic respiratory failure-bilateral infiltrates on CAT scan. Immunosuppression)
Subjective:
Patient reports some coughing without significant phlegm production.
Denies hemoptysis
No shortness of breath at rest
Does report shortness of breath with activity
Remains on supplemental oxygen
Review of Systems
General: Fever (n)
Cardiopulmonary: Dyspnea (none at rest), Dyspnea on Exertion, Cough and Sputum Production (n)
GI: Abdominal Pain (n)
Objective Data
Data Reviewed
Vital Signs / I&O / Oxygen:
Vital Signs
Temp Pulse Resp BP Pulse Ox
98.2 F 119 16 132/72 96
05/14/23 11:27 05/14/23 11:27 05/14/23 12:05 05/14/23 11:27 05/14/23 12:05
Intake and Output
05/13/23 05/14/23 05/15/23
06:59 06:59 06:59
Intake Total 480 / 480
Balance 480 / 480
SaO2 96
Nasal Cannula flow liters per 3
minute
Physical Exam
General: Respiratory Distress (none at rest) and Other (Able to speak in full sentences)
HEENT: Normocephalic
Cardiovascular: S1-S2
Respiratory: Wheeze (n), Crackles and Non-Labored Respirations
GI: Soft and Non Distended
Neurology: Awake and Alert
Skin: Warm
Labs/Micro/Reports
Lab Data
05/14/23 05:55
05/14/23 05:55
Microbiology
05/14/23 09:01 Urine Legionella Urinary Antigen - Final
Negative for Legionella pneumophila Serogroup 1 antigen.
A negative result does not rule out the possiblity of
Legionella infection due to other serogroups or species of
Legionella. Clinical correlation is recommended.
05/14/23 09:01 Urine Streptococcus pneumoniae Antigen (M - Final
Negative for Streptococcus pneumoniae antigen.
A negative result does not exclude infection with
Streptococcus pneumoniae. Clinical correlation is
recommended.
05/13/23 16:51 Nasalpharynx Influenza Type A (PCR) - Final
Not Detected
05/13/23 16:51 Nasalpharynx Influenza Type A (H1) (PCR) - Final
Not Detected
05/13/23 16:51 Nasalpharynx Influenza Type A (H3) (PCR) - Final
Not Detected
05/13/23 16:51 Nasalpharynx Influenza Type B (PCR) - Final
Not Detected
05/13/23 16:51 Nasalpharynx Resp Syncytial Virus Type A (PCR) - Final
Not Detected
05/13/23 16:51 Nasalpharynx Resp Syncytial Virus Type B (PCR) - Final
Not Detected
05/13/23 16:51 Nasalpharynx Adenovirus DNA (PCR) - Final
Not Detected
05/13/23 16:51 Nasalpharynx Human Metapneumovirus (PCR) - Final
Not Detected
05/13/23 16:51 Nasalpharynx Parainfluenza Virus Type 1 (PCR) - Final
Not Detected
05/13/23 16:51 Nasalpharynx Parainfluenza Virus Type 2 (PCR) - Final
Not Detected
05/13/23 16:51 Nasalpharynx Parainfluenza Virus Type 3 (PCR) - Final
Not Detected
05/13/23 16:51 Nasalpharynx Parainfluenza Virus Type 4 - Final
Not Detected
05/13/23 16:51 Nasalpharynx Rhinovirus (PCR) - Final
Not Detected
05/13/23 05:28 Nasal Swab Influenza Types A & B (YANELIS) - Final
Negative for Influenza A & B, NAAT
Negative results must be combined with clinical observations
and patient history.
Nucleic Acid Amplification test (NAAT)performed on the
[employer] platform.
--- NOTE | 2023-05-14 12:38 | CM ---
Reviewed the chart notes and spoke with the patient at the bedside. The patient resides with his spouse in a two story home with two steps to enter. [facility] The patient reports no DME or SNF. The
patient confirmed his pharmacy of choice is the [facility] [address] [facility]. The patient is currently on supplemental O2. CM continues to be available to patient/family and is monitoring medical plan for needs at discharge.
Plan: Discharge to home with resumption of [facility].
[2023-05-14 15:37] VITALS: BP 125/68
[2023-05-14 16:16] LABS: Glucose - Point of Care 209 mg/dl (70-99)
--- NOTE | 2023-05-14 16:23 | PTOTSP ---
Pt declined PT but says he has been independently ambulatory in room without AD which was confirmed by RN. PT will sign off. Please consult if change in function.
[2023-05-14] MEDS: LOVENOX 40 MG SC (17:40)
[2023-05-14] MEDS: LIPITOR 10 MG PO (17:40)
[2023-05-14 19:35] VITALS: BP 109/64; BP 131/73; BP 137/71; PULSE 111; PULSE 112; PULSE 117
[2023-05-14] MEDS: ATROVENT NEBULES 0.5 MG INH (20:02)
[2023-05-14 21:41] LABS: Glucose - Point of Care 228 mg/dl (70-99)
[2023-05-14 23:02] VITALS: BP 121/61
[2023-05-15] VITALS (7 sets, daily range): BP systolic 109–145; BP diastolic 62–81; PULSE 104–123; BMI 24.7
[2023-05-15] MEDS: SOLU-MEDROL PF 50 MG IV ×4 (00:23→23:01)
[2023-05-15 06:50] LABS: Hematocrit 27.1 % (39.0-52.0); Hemoglobin 9.6 g/dL (13.0-18.0); Mean Corp Hgb Conc. 35.4 g/dL (33.0-37.0); Mean Corpuscular Hgb 38.4 pg (27.0-31.0); Mean Corpuscular Volume 108.4 fL (80.0-94.0); Mean Platelet Volume 9.8 fL (7.4-10.4); Platelet Count 351 10^3/uL (130-400); Red Cell Dist. Width 12.9 % (11.5-14.5); White Blood Cell Count 16.1 10^3/uL (4.8-10.8)
[2023-05-15 07:17] LABS: Blood Urea Nitrogen 34 mg/dl (9-20); Carbon Dioxide 25 mmol/L (22-30); Chloride 104 mmol/L (98-107); Estimated Creatinine Clearance 71 ml/min; Glucose 180 mg/dl (70-99); Potassium 4.3 mmol/L (3.5-5.1); Sodium 139 mmol/L (135-145); eGFR > 60.00
[2023-05-15 07:20] LABS: Glucose - Point of Care 151 mg/dl (70-99)
[2023-05-15] MEDS: XOPENEX 1.25 MG INHALANT SOLUTION INH ×2 (07:52→19:43)
[2023-05-15] MEDS: ATROVENT NEBULES 0.5 MG INH ×2 (07:53→19:44)
[2023-05-15] MEDS: VFEND 200 MG PO ×2 (08:48→20:44)
[2023-05-15] MEDS: MUCINEX 600 MG PO ×2 (08:48→20:44)
[2023-05-15] MEDS: ZITHROMAX 500 MG PO (08:48)
[2023-05-15] MEDS: VITAMIN B-12 1000 MCG PO (08:48)
[2023-05-15] MEDS: FIRVANQ 125 MG PO ×2 (08:48→20:44)
[2023-05-15] MEDS: PEPCID 20 MG PO ×2 (08:48→20:44)
[2023-05-15] MEDS: VITAMIN D3 (cholecalciferol) 25 MCG PO (08:48)
[2023-05-15] MEDS: THERAGRAN 1 TABLET PO (08:48)
[2023-05-15] MEDS: PROTONIX 40 MG PO (08:48)
[2023-05-15] MEDS: NORVASC 10 MG PO (08:49)
[2023-05-15] MEDS: VALTREX 1000 MG PO (08:49)
[2023-05-15] MEDS: MEPRON SUSPENSION 1500 MG PO (08:49)
--- NOTE | 2023-05-15 11:33 | W.PN.ID1 ---
Date of Service
Date of Service: May 15, 2023
Today's Communication
small improvement
continue current therapies
- steroids at 50 mg methylpred 50 q8 which is approximately prednisone 188 mg qday - high dose - if continued improvement then this could be converted to oral and continued at least 2 weeks with early follow up with [facility] to determine ultimate taper
which is typically over months
Assessment / Plan
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
Immunosuppression
Pneumonia
H/o Lung gvhd
H/o C difficile
ET
- less O2 requirements; using acapella but not really producing sputum
- blood cultures x2 no growth to date
- sputum culture - normal karla - contaminated sample
- legionella and s pneumo urine ags neg
- repeat ESR/CRP/ferritin sunday
- continue on ppx with atovaquone, valacyclovir, voriconazole, oral vancomycin
- continue azithromycin (lower risk of recurrent c diff) x5 days (long half life, equivalent to 10 day course)
- steroids at 50 mg methylpred 50 q8 which is approximately prednisone 188 mg qday - high dose - if continued improvement then this could be continued at least 2 weeks with early follow up with [facility] to determine ultimate taper which is typically over
months
- protonix while on high dose steroids - ulcer ppx
- if no response to steroids in several days then would request bronch with biopsy
- discussed atovaquone per patient, I would not stop while on high dose steroids, bactrim might eventually be considered which has relatively low risk of c diff
- oral vancomycin taper also per [facility]
- follow clinically- further workup pending course; if [facility] physicians prefer transfer then I would be in agreement
Chief Complaint
-: Pneumonia and Other (Immunosuppression)
Subjective / Review of Systems
remains afebrile
bp stable
declining o2 requirements
increased wbc on steroids
cr stable
resp cx normal karla
cultures neg
Vital Signs / Physical Exam
Vital Signs
Vital Signs
Temp Pulse Resp BP Pulse Ox
98.1 F 107 16 129/78 95
05/15/23 11:01 05/15/23 11:01 05/15/23 11:01 05/15/23 11:01 05/15/23 11:01
Physical Exam
Constitutional: No Acute Distress and Chronically Ill
Cardiovascular: Regular Rate and S1/S2; Negative Murmur or Rub
Pulmonary: Clear and Symmetric; Negative Wheezes or Rales
Gastrointestinal: Soft, Non Tender, Non Distended and Normal Bowel Sounds
Skin: Warm and Dry; Negative Rash or Jaundice
Objective Data
Lab Data
Lab Results
05/15/23 06:36
05/15/23 06:36
ESR 109 mm/hour (0-20) H 05/13/23 11:36
Estimated Creat Clear 71 ml/min 05/15/23 06:36
Lactic Acid 0.9 mmol/L (0.7-2.0) 05/13/23 04:31
Total Bilirubin 0.5 mg/dl (0.2-1.3) 05/13/23 04:31
AST 43 U/L (17-59) 05/13/23 04:31
ALT 49 U/L (0-50) 05/13/23 04:31
Alkaline Phosphatase 159 U/L (38-126) H 05/13/23 04:31
C-Reactive Protein 225.70 mg/L (0.0-10.00) H 05/13/23 11:36
Most recent labs reviewed.
Micro Results:
05/15/23 07:28 Respiratory Culture - Final
Sputum Gram Stain - Final
05/13/23 17:44 Blood Culture - Preliminary
Blood/Venous No Growth in 24 hours- Final report to follow
05/13/23 16:31 Blood Culture - Preliminary
Blood/Venous No Growth in 24 hours- Final report to follow
05/14/23 09:01 Legionella Urinary Antigen - Final
Urine Negative for Legionella pneumophila Serogroup 1 antigen.
A negative result does not rule out the possiblity of
Legionella infection due to other serogroups or species of
Legionella. Clinical correlation is recommended.
Streptococcus pneumoniae Antigen (M - Final
Negative for Streptococcus pneumoniae antigen.
A negative result does not exclude infection with
Streptococcus pneumoniae. Clinical correlation is
recommended.
05/13/23 16:51 Influenza Type A (PCR) - Final
Nasalpharynx Not Detected
Influenza Type A (H1) (PCR) - Final
Not Detected
Influenza Type A (H3) (PCR) - Final
Not Detected
Influenza Type B (PCR) - Final
Not Detected
Resp Syncytial Virus Type A (PCR) - Final
Not Detected
Resp Syncytial Virus Type B (PCR) - Final
Not Detected
Adenovirus DNA (PCR) - Final
Not Detected
Human Metapneumovirus (PCR) - Final
Not Detected
Parainfluenza Virus Type 1 (PCR) - Final
Not Detected
Parainfluenza Virus Type 2 (PCR) - Final
Not Detected
Parainfluenza Virus Type 3 (PCR) - Final
Not Detected
Parainfluenza Virus Type 4 - Final
Not Detected
Rhinovirus (PCR) - Final
Not Detected
05/13/23 05:28 Influenza Types A & B (YANELIS) - Final
Nasal Swab Negative for Influenza A & B, NAAT
Negative results must be combined with clinical observations
and patient history.
Nucleic Acid Amplification test (NAAT)performed on the
[employer] platform.
Care Review
Plan reviewed with: Physician (Dr Ybarra - so)
--- NOTE | 2023-05-15 11:57 | W.PN.HOSP.TC ---
Today's Communication/Plan
-
Continue steroids and AB
Assessment / Plan
Assessment / Plan
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 October 2022 patient had fevers treated with meropenem, Zithromax steroids and vancomycin. He was
discharged on oxygen but he has been off of oxygen since then.
He has a chronic cough. Recently had some mucus production increased shortness of breath. Saw PCP on tested for COVID flu and RSV which were negative reportedly. Chest x-ray showed bilateral infiltrates and was started on Levaquin. He
has not felt better with antibiotics and he noted that his pulse ox was falling.
He stated he was about to stop Atovaquone as OP , but then got started here .
Patient also states that he has had issues with waking up multiple times at nighttime to pass urine and then he also will have a bowel movement along with that. Patient is not on tacrolimus since March 2022
CVS: S1-S2 normal
Chest:few rales
Abdomen: Soft, NT / Bowel sounds present
Extremities: No edema, normal pulses
COLLISION ESTIMATOR: Non focal exam
# Acute hypoxic respiratory failure
Currently on 3 L of oxygen
Reported saturation 70s at home
Mid 80s in the ER
Bilateral pulmonary infiltrates-unknown etiology -GVHD is on the differential
Started on steroids and Zithromax
Sputum culture if possible, Legionella and pneumococcal antigens.
COVID and influenza negative
Respiratory viral panel-negative
May need bronchoscopy if no improvement
Pulmonary and infectious disease following
# MDS
Status post chemotherapy at [facility] in May [address] Bland
Bone marrow transplant 09/21/2022
October 2022-needed antibiotics meropenem, Zithromax, vancomycin ,etanercept and steroids for fevers
Off prednisone since December 2022
Off tacrolimus since March 2023
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
# Leukocytosis likely secondary to steroids
# C. difficile colitis-March 2023 treated with vancomycin
Currently on vancomycin twice daily-was diagnosed after a colonoscopy in [place] and has remained on this since then
# Hyperglycemia-was on insulin when he was on steroids. Blood sugars and use insulin as needed. HbA1C 6.0
Accu checks
# Hyperlipidemia-continue atorvastatin
# Anemia-likely secondary to chronic disease
Iron studies noted
# Hypertension-continue amlodipine
# Benign tremors-worse since on steroids. Patient states that he has tried propranolol in the past but it made his asthma worse. He also tried another medicine which he cannot think of the name.
He wants to just watch it for now.
# Frequent urination at night-recommended prostate evaluation as outpatient with urology
# Chronic cough/asthma
On budesonide, ipratropium, levalbuterol twice daily as outpatient
# Sleep apnea-not on treatment
# Rv-gvwkgq-expxvrozjw cigars stopped years ago
# DVT prophylaxis-Lovenox
# Full code
Discussed with nursing
Discussed with at bedside
Discussed with infectious disease and pulmonary
I gave the option for the patient to be transferred to [facility]. He wants to stay here for now get treatment to go home and go to [facility] as outpatient. We discussed that we are not equivalant to [facility] and advantages of being at [facility] discussed. Also
discussed that GVHD is not ruled out at this point.
I have placed a call to Sandra White - [phone]
( He also sees Marely Lincoln NP)
time spent 45 min
Anticipated Discharge: > 48 hours
Subjective/Interval History
-
Date of Service: May 15, 2023
Objective Data
-
Labs:
Laboratory Results
05/15/23
06:36
WBC 16.1 H
Hgb 9.6 L
Hct 27.1 L
Plt Count 351
Sodium 139
Potassium 4.3
Chloride 104
Carbon Dioxide 25
BUN 34 H
Creatinine 1.0
Glucose 180 H
Calcium 9.0
Vital Signs:
Vital Signs
Temp Pulse Resp BP Pulse Ox
98.1 F 107 16 129/78 95
05/15/23 11:01 05/15/23 11:01 05/15/23 11:01 05/15/23 11:01 05/15/23 11:01
I&O
05/14/23 05/15/23 05/16/23
06:59 06:59 06:59
Intake Total 480 / 480 1380 / 1380
Balance 480 / 480 1380 / 1380
--- NOTE | 2023-05-15 12:41 | W.PN.PUL3 ---
Today's Communication / Plan
-
Continue IV corticosteroids
Monitor blood sugars
Wean down FiO2
Check chest x-ray tomorrow
Continue azithromycin per infectious disease
Assessment
-
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
tacrolimus since March 2023, now presents with 6 days of increased shortness of breath, low-grade fevers, hypoxia, started on Levaquin therapy 05/10/2023, now with progressive hypoxia and progressive interstitial infiltrates, admitted 05/13/2023
Acute hypoxic respiratory insufficiency
Saturation in the 70s at home
86% on room air in the ED
Bilateral pulmonary infiltrates
Progressive in 72 hours
BMT October 2022 (Kimberlee Montemayor at [facility])
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
Chemotherapy (Azacitidine) at [facility], April 2022 (Dr. Bland)
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
Treated with meropenem/azithromycin/vancomycin/steroids and etanercept
Off tacrolimus therapy since March 2023
Maintained on atovaquone, valacyclovir, voriconazole prophylaxis
Off prednisone since 12/29/2022
History of C. difficile colitis March 2023
Hospitalized at [facility]
On oral vancomycin
Conditions present prior to admission
Sleep apnea, not treated
Impaired fasting glucose
Required insulin therapy while on steroids
History of colon polyps
Hyperlipidemia
Essential tremor
[id number] history of smoking, quit age 23
Cough variant asthma
Family history of asthma
Plan/recommendations
No clinical changes overnight.
Oxygenation has not worsened. Remains on 3 L supplemental oxygen.
Does not appear toxic.
-
Salient features are progressive bilateral interstitial infiltrates in the setting of Levaquin therapy, hypoxia which is progressive
Patient has been off steroids since December 2022
On atovaquone since for PCP prophylaxis.
Remains on voriconazole, acyclovir prophylaxis
Patient not able to get vaccines due to bone marrow transplant
Of note, off tacrolimus since March 2023
-
Differential diagnosis includes inflammatory process versus infectious versus opportunistic infection. Gcfim-mvtmxq-yrqc disease in the differential.
Continue with current plan:
Continue with IV corticosteroids at the current dose. Likely will continue for additional 24 to 48 hours depending on clinical response.
Repeat chest x-ray tomorrow morning.
Continue to wean down oxygen as able-oxygenation has not worsened. Currently at 3 L.
All cultures negative so far: On azithromycin. Case discussed with infectious disease plan
Case discussed with primary team.
Transplant team at [facility] also has been contacted. They were okay with trial of steroids.
-
Negative Legionella and pneumococcal urine antigens
Influenza/COVID-negative, respiratory viral panel-all negative.
On Zithromax per infectious disease.
It is noted that procalcitonin is normal
Oral vancomycin, voriconazole, valacyclovir, atovaquone continues- prophylaxis.
-
Bronchoscopy with transbronchial biopsies may be indicated, if there is no improvement.
-
History of asthma, follows up with Dr. Huggins. Not bronchospastic on exam.
Continue Xopenex
Continue Atrovent
Hold budesonide while on high doses of steroids.
Follow blood sugars while on steroids. Patient required insulin therapy while on steroids in the past
Patient updated in detail by Dr. Carvajal 05/14/2023.
Reviewed with infectious disease and primary team
Will follow.
-
Follow-up with Dr. Huggins after discharge
Subjective Data
-
Date of Service:
Date of Service: May 15, 2023
Chief Complaint: Pulmonary Follow Up (Acute hypoxemic respiratory failure-bilateral infiltrates on CAT scan. Immunosuppression)
Subjective:
Patient offers no new complaints
Remains on low rate supplemental oxygen
Denies hemoptysis
Denies significant phlegm production.
Review of Systems
General: Fever
Cardiopulmonary: Dyspnea, Cough, Sputum Production (n) and Wheezing (n)
GI: Abdominal Pain (n), Nausea and Vomiting
Objective Data
Data Reviewed
Vital Signs / I&O / Oxygen:
Vital Signs
Temp Pulse Resp BP Pulse Ox
98.1 F 107 16 129/78 95
05/15/23 11:01 05/15/23 11:01 05/15/23 11:01 05/15/23 11:01 05/15/23 11:01
Intake and Output
05/14/23 05/15/23 05/16/23
06:59 06:59 06:59
Intake Total 480 / 480 1380 / 1380
Balance 480 / 480 1380 / 1380
SaO2 95
Nasal Cannula flow liters per 3
minute
Physical Exam
General: Respiratory Distress (none at rest) and Other (Able to speak in full sentences)
HEENT: Normocephalic
Cardiovascular: S1-S2
Respiratory: Wheeze (n), Crackles and Non-Labored Respirations
GI: Soft and Non Distended
Neurology: Awake and Alert
Skin: Warm
Labs/Micro/Reports
Lab Data
05/15/23 06:36
05/15/23 06:36
Microbiology
05/15/23 07:28 Sputum Respiratory Culture - Final
05/15/23 07:28 Sputum Gram Stain - Final
05/13/23 17:44 Blood/Venous Blood Culture - Preliminary
No Growth in 24 hours- Final report to follow
05/13/23 16:31 Blood/Venous Blood Culture - Preliminary
No Growth in 24 hours- Final report to follow
05/14/23 09:01 Urine Legionella Urinary Antigen - Final
Negative for Legionella pneumophila Serogroup 1 antigen.
A negative result does not rule out the possiblity of
Legionella infection due to other serogroups or species of
Legionella. Clinical correlation is recommended.
05/14/23 09:01 Urine Streptococcus pneumoniae Antigen (M - Final
Negative for Streptococcus pneumoniae antigen.
A negative result does not exclude infection with
Streptococcus pneumoniae. Clinical correlation is
recommended.
05/13/23 16:51 Nasalpharynx Influenza Type A (PCR) - Final
Not Detected
05/13/23 16:51 Nasalpharynx Influenza Type A (H1) (PCR) - Final
Not Detected
05/13/23 16:51 Nasalpharynx Influenza Type A (H3) (PCR) - Final
Not Detected
05/13/23 16:51 Nasalpharynx Influenza Type B (PCR) - Final
Not Detected
05/13/23 16:51 Nasalpharynx Resp Syncytial Virus Type A (PCR) - Final
Not Detected
05/13/23 16:51 Nasalpharynx Resp Syncytial Virus Type B (PCR) - Final
Not Detected
05/13/23 16:51 Nasalpharynx Adenovirus DNA (PCR) - Final
Not Detected
05/13/23 16:51 Nasalpharynx Human Metapneumovirus (PCR) - Final
Not Detected
05/13/23 16:51 Nasalpharynx Parainfluenza Virus Type 1 (PCR) - Final
Not Detected
05/13/23 16:51 Nasalpharynx Parainfluenza Virus Type 2 (PCR) - Final
Not Detected
05/13/23 16:51 Nasalpharynx Parainfluenza Virus Type 3 (PCR) - Final
Not Detected
05/13/23 16:51 Nasalpharynx Parainfluenza Virus Type 4 - Final
Not Detected
05/13/23 16:51 Nasalpharynx Rhinovirus (PCR) - Final
Not Detected
05/13/23 05:28 Nasal Swab Influenza Types A & B (YANELIS) - Final
Negative for Influenza A & B, NAAT
Negative results must be combined with clinical observations
and patient history.
Nucleic Acid Amplification test (NAAT)performed on the
[employer] platform.
[2023-05-15 13:16] LABS: Glucose - Point of Care 226 mg/dl (70-99)
--- NOTE | 2023-05-15 16:17 | W.PN.UPDATE ---
Update Note
Progress Note Update
Spoke to Karla Lincoln from [facility]. Updated about patient's condition. She will talk to Dr. Montemayor and the patient and will get back to me.
[2023-05-15 16:37] LABS: Glucose - Point of Care 192 mg/dl (70-99)
[2023-05-15] MEDS: NOVOLOG FLEXPEN-LOW RESISTANCE 1 UNITS SC (17:27)
[2023-05-15] MEDS: LIPITOR 10 MG PO (17:28)
[2023-05-15] MEDS: LOVENOX 40 MG SC (17:28)
--- NOTE | 2023-05-15 17:50 | W.PN.UPDATE ---
Update Note
Progress Note Update
Spoke to Dr Montemayor. Reviewed CT images.
Discussed tat he is on steroids. Initially recommended to wean if not helpful.
(But since he is being transferred I will leave as is. )
Recommended transfer for Bronch and to be seen by Pulm team there to rule out GVHD.
Went to pt room and spoke to him and on his phone.
Both agreable for transfer.
Form signed.
called transfer center.
D/W rn
tIME 30 MIN
[2023-05-15 21:33] LABS: Glucose - Point of Care 365 mg/dl (70-99)
[2023-05-15] MEDS: NOVOLOG FLEXPEN 4 UNITS SC (22:58)
--- NOTE | 2023-05-15 23:40 | PTCARENOTE ---
Pt with an evening bloodsugar of 365. 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 4 units of Novolog ordered and given. See MAR
[2023-05-16 03:00] VITALS: BP 135/75
[2023-05-16 05:57] VITALS: BMI 25.1
[2023-05-16 06:15] LABS: Hematocrit 24.7 % (39.0-52.0); Hemoglobin 8.7 g/dL (13.0-18.0); Mean Corp Hgb Conc. 35.2 g/dL (33.0-37.0); Mean Corpuscular Volume 107.9 fL (80.0-94.0); Mean Platelet Volume 9.8 fL (7.4-10.4); Platelet Count 335 10^3/uL (130-400); Red Blood Cell Count 2.29 10^6/uL (4.70-6.10); White Blood Cell Count 13.7 10^3/uL (4.8-10.8)
[2023-05-16 06:37] LABS: Blood Urea Nitrogen 31 mg/dl (9-20); Calcium 8.3 mg/dl (8.4-10.2); Carbon Dioxide 26 mmol/L (22-30); Chloride 110 mmol/L (98-107); Estimated Creatinine Clearance 79 ml/min; Glucose 166 mg/dl (70-99); Potassium 4.4 mmol/L (3.5-5.1); Sodium 139 mmol/L (135-145); eGFR > 60.00
[2023-05-16 07:15] VITALS: BP 122/74
[2023-05-16 07:17] LABS: Erythrocyte Sed Rate 96 mm/hour (0-20)
[2023-05-16] MEDS: ATROVENT NEBULES 0.5 MG INH ×2 (07:41→19:37)
[2023-05-16] MEDS: XOPENEX 1.25 MG INHALANT SOLUTION INH ×2 (07:47→19:37)
[2023-05-16 07:49] LABS: Glucose - Point of Care 176 mg/dl (70-99)
[2023-05-16] MEDS: PROTONIX 40 MG PO (08:15)
[2023-05-16] MEDS: NOVOLOG FLEXPEN-LOW RESISTANCE 1 UNITS SC ×2 (08:15→13:23)
[2023-05-16] MEDS: ZITHROMAX 500 MG PO (08:16)
[2023-05-16] MEDS: VALTREX 1000 MG PO (08:16)
[2023-05-16] MEDS: NORVASC 10 MG PO (08:16)
[2023-05-16] MEDS: MUCINEX 600 MG PO ×2 (08:16→20:54)
[2023-05-16] MEDS: VITAMIN B-12 1000 MCG PO (08:16)
[2023-05-16] MEDS: FIRVANQ 125 MG PO ×2 (08:17→20:54)
[2023-05-16] MEDS: MEPRON SUSPENSION 1500 MG PO (08:17)
[2023-05-16] MEDS: VFEND 200 MG PO ×2 (08:18→20:54)
[2023-05-16] MEDS: VITAMIN D3 (cholecalciferol) 25 MCG PO (08:18)
[2023-05-16] MEDS: PEPCID 20 MG PO ×2 (08:18→20:54)
[2023-05-16] MEDS: SOLU-MEDROL PF 50 MG IV ×3 (08:18→23:01)
[2023-05-16] MEDS: THERAGRAN 1 TABLET PO (08:32)
--- NOTE | 2023-05-16 10:06 | PN.CDI ---
Addendum entered and electronically signed by Cb Ybarra MD 05/16/23 18:15:
Documentation is complete at this time.
Original Note:
CDI
- -
CDI:
Physician Documentation Request
Admit Date: 05/13/23 06:33
Dear Doctor Amada,
Please review the following and provide your response in the progress notes.
Clinical Indicators:
Pt admitted with PNA /Immunocompromised s/p Stem cell transplant
On admission WBC 13.6, HR 114, RR 26 /Pt is on Zithromax
Please clarify which of the following most accurately describes the status of the patient's infection:
Sepsis-POA
- Systemic manifestations of infection, with 2 or more SIRS criteria which include:
- Fever >100.4 degrees F or hypothermia < 96.8 degrees F
- Leukocytosis - WBC > 12,000 or leukopenia - WBC < 4,000 or > 10% bands
- Tachycardia > 90 beats per minute
- Tachypnea - RR > 20 breaths per minute or PaCO2 , 32mmHg
Source: Merck Manual 2013
Pneumonia , Without Systemic Illness
Other
Use of terms such as suspected, likely, concern for, or probable (associated with a specific diagnosis that is being evaluated, monitored, or treated as if it exists) are acceptable and can be coded in the inpatient setting, when documented at the
time of discharge.
Thank you,
Heather Chaudhari RN
CDI Specialist
[place] [employer]
Please use your independent medical judgment in providing your response.
--- NOTE | 2023-05-16 10:50 | W.PN.PUL3 ---
Today's Communication / Plan
-
Cont. IV steroids for now.
Cont. Azithromycin
Cont. nebs, restart pulmicort once starting tapering steroids.
Wean Oxgen as able, has remained on 3L .
To be transferred to [facility].
Assessment
-
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
tacrolimus since March 2023, now presents with 6 days of increased shortness of breath, low-grade fevers, hypoxia, started on Levaquin therapy 05/10/2023, now with progressive hypoxia and progressive interstitial infiltrates, admitted 05/13/2023
Acute hypoxic respiratory failure- currently on 3L.
Saturation in the 70s at home
86% on room air in the ED
Bilateral pulmonary infiltrates
Progressive in 72 hours
-
BMT October 2022 (Kimberlee Montemayor at [place])
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
Chemotherapy (Azacitidine) at [facility], April 2022 (Dr. Bland)
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
Treated with meropenem/azithromycin/vancomycin/steroids and etanercept
Off tacrolimus therapy since March 2023
Maintained on atovaquone, valacyclovir, voriconazole prophylaxis
Off prednisone since 12/29/2022
History of C. difficile colitis March 2023
Hospitalized at [facility]
On oral vancomycin
Conditions present prior to admission
Sleep apnea, not treated
Impaired fasting glucose
Required insulin therapy while on steroids
History of colon polyps
Hyperlipidemia
Essential tremor
[id number] history of smoking, quit age 23
Cough variant asthma
Family history of asthma
Plan/recommendations
Overall no change in the pulmonary situation overnight.
Remains on 3 L supplemental oxygen.
Afebrile.
Patient appears nontoxic
Chest x-ray this morning 05/16/2023: Persistent but improved bilateral infiltrates.
-
Prior history:
Salient features are progressive bilateral interstitial infiltrates in the setting of Levaquin therapy, hypoxia which is progressive
Patient has been off steroids since December 2022
On atovaquone for PCP prophylaxis.
Remains on voriconazole, acyclovir prophylaxis
Patient not able to get vaccines due to bone marrow transplant
Of note, off tacrolimus since March 2023
-
Differential diagnosis includes inflammatory process versus infectious versus opportunistic infection. Dybyc-nxioee-pcjt disease in the differential.
Continue with current plan:
Empirically started on IV corticosteroids at the suggestion of transplant center at [facility] over the weekend.(Defer steroids to transplant team once he is transferred) seems to be tolerating and improving.
Chest x-ray 05/16/2023: Stable but improved bilateral infiltrates. No new abnormalities.
-
Continue to wean down oxygen as able-oxygenation has not worsened. Currently at 3 L.
All cultures negative so far: On azithromycin. Case discussed with infectious disease
Case discussed with primary team.
Transplant team at [facility] also has been contacted. They were okay with trial of steroids. They are suggesting transfer to [facility].
-
Negative Legionella and pneumococcal urine antigens
Influenza/COVID-negative, respiratory viral panel-all negative.
On Zithromax per infectious disease.
It is noted that procalcitonin is normal
Oral vancomycin, voriconazole, valacyclovir, atovaquone continues- prophylaxis.
-
Bronchoscopy with transbronchial biopsies may be indicated, if there is no improvement. Can be addressed at [facility].
-
History of asthma, follows up with Dr. Huggins. Not bronchospastic on exam.
Continue Xopenex
Continue Atrovent
Hold budesonide while on high doses of steroids., Start once steroids are being tapered down.
Follow blood sugars while on steroids. Patient required insulin therapy while on steroids in the past
Patient updated in detail by Dr. Carvajal 05/14/2023, 05/15/2023 and 05/16/2023
-
Follow-up with Dr. Huggins after discharge
-
Transfer process to [facility] started.
Will cont. to follow while here at .
Subjective Data
-
Date of Service:
Date of Service: May 16, 2023
Chief Complaint: Pulmonary Follow Up (Acute hypoxemic respiratory failure-bilateral infiltrates on CAT scan. Immunosuppression)
Subjective:
No new complaints.
Remains on low rate supplemental oxygen with no change.
Review of Systems
General: Fever (n)
Cardiopulmonary: Dyspnea (none at rest), Dyspnea on Exertion (improved) and Cough
GI: Abdominal Pain (n) and Nausea (n)
Objective Data
Data Reviewed
Vital Signs / I&O / Oxygen:
Vital Signs
Temp Pulse Resp BP Pulse Ox
98.1 F 72 16 141/66 94
05/16/23 07:15 05/16/23 08:16 05/16/23 07:48 05/16/23 08:16 05/16/23 07:48
Intake and Output
05/15/23 05/16/23 05/17/23
06:59 06:59 06:59
Intake Total 1380 / 1380 1260 / 1260
Balance 1380 / 1380 1260 / 1260
SaO2 94
Nasal Cannula flow liters per 3
minute
Physical Exam
General: Respiratory Distress (none at rest) and Other (Able to speak in full sentences)
HEENT: Normocephalic
Cardiovascular: S1-S2
Respiratory: Wheeze (n), Crackles and Non-Labored Respirations
GI: Soft and Non Distended
Neurology: Awake and Alert
Skin: Warm
Labs/Micro/Reports
Lab Data
05/16/23 05:43
05/16/23 05:43
Microbiology
05/13/23 17:44 Blood/Venous Blood Culture - Preliminary
No Growth in 48 hours- Final report to follow
05/13/23 16:31 Blood/Venous Blood Culture - Preliminary
No Growth in 48 hours- Final report to follow
05/15/23 07:28 Sputum Respiratory Culture - Final
05/15/23 07:28 Sputum Gram Stain - Final
05/14/23 09:01 Urine Legionella Urinary Antigen - Final
Negative for Legionella pneumophila Serogroup 1 antigen.
A negative result does not rule out the possiblity of
Legionella infection due to other serogroups or species of
Legionella. Clinical correlation is recommended.
05/14/23 09:01 Urine Streptococcus pneumoniae Antigen (M - Final
Negative for Streptococcus pneumoniae antigen.
A negative result does not exclude infection with
Streptococcus pneumoniae. Clinical correlation is
recommended.
05/13/23 16:51 Nasalpharynx Influenza Type A (PCR) - Final
Not Detected
05/13/23 16:51 Nasalpharynx Influenza Type A (H1) (PCR) - Final
Not Detected
05/13/23 16:51 Nasalpharynx Influenza Type A (H3) (PCR) - Final
Not Detected
05/13/23 16:51 Nasalpharynx Influenza Type B (PCR) - Final
Not Detected
05/13/23 16:51 Nasalpharynx Resp Syncytial Virus Type A (PCR) - Final
Not Detected
05/13/23 16:51 Nasalpharynx Resp Syncytial Virus Type B (PCR) - Final
Not Detected
05/13/23 16:51 Nasalpharynx Adenovirus DNA (PCR) - Final
Not Detected
05/13/23 16:51 Nasalpharynx Human Metapneumovirus (PCR) - Final
Not Detected
05/13/23 16:51 Nasalpharynx Parainfluenza Virus Type 1 (PCR) - Final
Not Detected
05/13/23 16:51 Nasalpharynx Parainfluenza Virus Type 2 (PCR) - Final
Not Detected
05/13/23 16:51 Nasalpharynx Parainfluenza Virus Type 3 (PCR) - Final
Not Detected
05/13/23 16:51 Nasalpharynx Parainfluenza Virus Type 4 - Final
Not Detected
05/13/23 16:51 Nasalpharynx Rhinovirus (PCR) - Final
Not Detected
05/13/23 05:28 Nasal Swab Influenza Types A & B (YANELIS) - Final
Negative for Influenza A & B, NAAT
Negative results must be combined with clinical observations
and patient history.
Nucleic Acid Amplification test (NAAT)performed on the
[employer] platform.
--- NOTE | 2023-05-16 10:53 | W.PN.ID1 ---
Date of Service
Date of Service: May 16, 2023
Today's Communication
transfer planned, continue current therapies
Assessment / Plan
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
Immunosuppression
Pneumonia
H/o Lung gvhd
H/o C difficile
ET
- less O2 requirements; using acapella but not really producing sputum
- blood cultures x2 no growth to date
- sputum culture - normal karla - contaminated sample
- CRP improved, ferritin increased
- continue on ppx with atovaquone, valacyclovir, voriconazole, oral vancomycin
- continue azithromycin (lower risk of recurrent c diff) x5 days (long half life, equivalent to 10 day course)
- steroids at 50 mg methylpred 50 q8 - if continued improvement then this could be continued at least 2 weeks with early follow up with UOP to determine ultimate taper which is typically over months
- for transfer for further workup including bronchoscopy with biopsy, cultures
Chief Complaint
-: Pneumonia and Other (Immunosuppression)
Subjective / Review of Systems
afebrile
bp stable
O2 remains at 3L
leukocytosis persists on steroids
cr 0.9
CXR read: Persistent, though improving interstitial prominence noted, bilaterally. No focal dense consolidation.
less hypoxemic with walking
for transfer
Vital Signs / Physical Exam
Vital Signs
Vital Signs
Temp Pulse Resp BP Pulse Ox
98.1 F 72 16 141/66 94
05/16/23 07:15 05/16/23 08:16 05/16/23 07:48 05/16/23 08:16 05/16/23 07:48
Physical Exam
Constitutional: No Acute Distress
Cardiovascular: Regular Rate and S1/S2; Negative Murmur or Rub
Pulmonary: Symmetric, Coarse and Non Labored; Negative Wheezes or Rales
Gastrointestinal: Soft, Non Tender, Non Distended and Normal Bowel Sounds
Skin: Warm and Dry; Negative Rash or Jaundice
Objective Data
Lab Data
Lab Results
05/16/23 05:43
05/16/23 05:43
ESR 96 mm/hour (0-20) H 05/16/23 05:43
Estimated Creat Clear 79 ml/min 05/16/23 05:43
Lactic Acid 0.9 mmol/L (0.7-2.0) 05/13/23 04:31
Total Bilirubin 0.5 mg/dl (0.2-1.3) 05/13/23 04:31
AST 43 U/L (17-59) 05/13/23 04:31
ALT 49 U/L (0-50) 05/13/23 04:31
Alkaline Phosphatase 159 U/L (38-126) H 05/13/23 04:31
C-Reactive Protein 54.60 mg/L (0.0-10.00) H 05/16/23 05:43
Most recent labs reviewed.
Micro Results:
05/13/23 17:44 Blood Culture - Preliminary
Blood/Venous No Growth in 48 hours- Final report to follow
05/13/23 16:31 Blood Culture - Preliminary
Blood/Venous No Growth in 48 hours- Final report to follow
05/15/23 07:28 Respiratory Culture - Final
Sputum Gram Stain - Final
05/14/23 09:01 Legionella Urinary Antigen - Final
Urine Negative for Legionella pneumophila Serogroup 1 antigen.
A negative result does not rule out the possiblity of
Legionella infection due to other serogroups or species of
Legionella. Clinical correlation is recommended.
Streptococcus pneumoniae Antigen (M - Final
Negative for Streptococcus pneumoniae antigen.
A negative result does not exclude infection with
Streptococcus pneumoniae. Clinical correlation is
recommended.
05/13/23 16:51 Influenza Type A (PCR) - Final
Nasalpharynx Not Detected
Influenza Type A (H1) (PCR) - Final
Not Detected
Influenza Type A (H3) (PCR) - Final
Not Detected
Influenza Type B (PCR) - Final
Not Detected
Resp Syncytial Virus Type A (PCR) - Final
Not Detected
Resp Syncytial Virus Type B (PCR) - Final
Not Detected
Adenovirus DNA (PCR) - Final
Not Detected
Human Metapneumovirus (PCR) - Final
Not Detected
Parainfluenza Virus Type 1 (PCR) - Final
Not Detected
Parainfluenza Virus Type 2 (PCR) - Final
Not Detected
Parainfluenza Virus Type 3 (PCR) - Final
Not Detected
Parainfluenza Virus Type 4 - Final
Not Detected
Rhinovirus (PCR) - Final
Not Detected
05/13/23 05:28 Influenza Types A & B (YANELIS) - Final
Nasal Swab Negative for Influenza A & B, NAAT
Negative results must be combined with clinical observations
and patient history.
Nucleic Acid Amplification test (NAAT)performed on the
[employer] platform.
Care Review
Plan reviewed with: Physician (Dr Ybarra and Dr Parrish - transfer)
[2023-05-16 11:10] VITALS: BP 123/73
--- NOTE | 2023-05-16 11:41 | W.PN.HOSP.TC ---
Addendum entered and electronically signed by Cb Ybarra MD 05/16/23 11:50:
Add 2 units of Novolog AC
Original Note:
Today's Communication/Plan
-
Continue current Rx and await transfer
Assessment / Plan
Assessment / Plan
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 October 2022 patient had fevers treated with meropenem, Zithromax steroids and vancomycin. He was
discharged on oxygen but he has been off of oxygen since then.
He has a chronic cough. Recently had some mucus production increased shortness of breath. Saw PCP on tested for COVID flu and RSV which were negative reportedly. Chest x-ray showed bilateral infiltrates and was started on Levaquin. He
has not felt better with antibiotics and he noted that his pulse ox was falling.
He stated he was about to stop Atovaquone as OP , but then got started here .
Patient also states that he has had issues with waking up multiple times at nighttime to pass urine and then he also will have a bowel movement along with that. Patient is not on tacrolimus since March 2022
CVS: S1-S2 normal
Chest:CTA
Abdomen: Soft, NT / Bowel sounds present
Extremities: No edema, normal pulses
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
# Acute hypoxic respiratory failure
Currently on 3 L of oxygen
Reported saturation 70s at home,Mid 80s in the ER
Bilateral pulmonary infiltrates-unknown etiology -GVHD is on the differential along with infection.
Unlikely fungal/PCP given he was on prophylaxis. He was also on valacyclovir prophylaxis.
Started on steroids and Zithromax
Sputum culture if possible, Legionella and pneumococcal antigens neg.
COVID and influenza negative
Respiratory viral panel-negative
Spoke to yesterday , transfer initiated. Waiting for a bed
May need bronchoscopy at [place]
Pulmonary and infectious disease following
# MDS
Status post chemotherapy at [place] in May [address] Bland
Bone marrow transplant 09/21/2022
October 2022-needed antibiotics meropenem, Zithromax, vancomycin ,etanercept and steroids for fevers
Off prednisone since December 2022
Off tacrolimus since March 2023
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
# Leukocytosis likely secondary to steroids
# C. difficile colitis-March 2023 treated with vancomycin
Currently on vancomycin twice daily-was diagnosed after a colonoscopy in [place] and has remained on this since then
If bowel movements frequency gets worse may need to increase the frequency of p.o. vancomycin
# Hyperglycemia-was on insulin when he was on steroids. Blood sugars and use insulin as needed. HbA1C 6.0
Accu checks
# Hyperlipidemia-continue atorvastatin
# Anemia-likely secondary to chronic disease
Iron studies noted
# Hypertension-continue amlodipine
# Benign tremors-worse since on steroids. Patient states that he has tried propranolol in the past but it made his asthma worse. He also tried another medicine which he cannot think of the name.
He wants to just watch it for now.
# Frequent urination at night-recommended prostate evaluation as outpatient with urology
# Chronic cough/asthma
On budesonide, ipratropium, levalbuterol twice daily as outpatient
# Sleep apnea-not on treatment
# Ry-wxwhaq-jdwllilmbj cigars stopped years ago
# DVT prophylaxis-Lovenox
# Full code
Discussed with nursing
Discussed with at bedside
Discussed with infectious disease and pulmonary
[facility] transplant physician Sandra White - [phone]
( He also sees Marely Lincoln NP)
Anticipated Discharge: Within 24 hours
Subjective/Interval History
-
Date of Service: May 16, 2023
Objective Data
-
Labs:
Laboratory Results
05/16/23
05:43
WBC 13.7 H
Hgb 8.7 L
Hct 24.7 L
Plt Count 335
Sodium 139
Potassium 4.4
Chloride 110 H
Carbon Dioxide 26
BUN 31 H
Creatinine 0.9
Glucose 166 H
Calcium 8.3 L
Vital Signs:
Vital Signs
Temp Pulse Resp BP Pulse Ox
98.1 F 72 16 141/66 94
05/16/23 07:15 05/16/23 08:16 05/16/23 07:48 05/16/23 08:16 05/16/23 07:48
I&O
05/15/23 05/16/23 05/17/23
06:59 06:59 06:59
Intake Total 1380 / 1380 1260 / 1260
Balance 1380 / 1380 1260 / 1260
--- NOTE | 2023-05-16 11:58 | CM ---
Reviewed the chart notes. Patient waiting for transfer to [place]. CM continues to be available to patient/family and is monitoring medical plan for needs at discharge.
Plan: Transfer to [place] when bed becomes available.
--- NOTE | 2023-05-16 12:15 | PTCARENOTE ---
[facility] update: spoke with Trice and provided current set of vitals, abnormal labs, meds, and testing. Still woking on a bed and will call when one becomes available.
[2023-05-16 12:43] LABS: Glucose - Point of Care 173 mg/dl (70-99)
[2023-05-16 15:20] VITALS: BP 126/68
[2023-05-16 16:50] LABS: Glucose - Point of Care 185 mg/dl (70-99)
[2023-05-16] MEDS: NOVOLOG FLEXPEN-LOW RESISTANCE 300 UNITS SC (17:27)
[2023-05-16] MEDS: NOVOLOG FLEXPEN 2 UNITS SC (17:27)
[2023-05-16] MEDS: LOVENOX 40 MG SC (17:28)
[2023-05-16] MEDS: LIPITOR 10 MG PO (17:30)
[2023-05-16 19:10] VITALS: BP 124/80; BP 141/80; BP 149/85; PULSE 105; PULSE 106; PULSE 114
[2023-05-16 21:35] LABS: Glucose - Point of Care 295 mg/dl (70-99)
[2023-05-16 23:03] VITALS: BP 130/70
[2023-05-17 03:35] VITALS: BP 136/76
[2023-05-17 04:30] VITALS: BMI 24.9
[2023-05-17 06:30] LABS: Glucose - Point of Care 166 mg/dl (70-99)
[2023-05-17 07:10] LABS: Blood Urea Nitrogen 34 mg/dl (9-20); Calcium 8.8 mg/dl (8.4-10.2); Carbon Dioxide 26 mmol/L (22-30); Chloride 107 mmol/L (98-107); Estimated Creatinine Clearance 79 ml/min; Glucose 166 mg/dl (70-99); Sodium 142 mmol/L (135-145); eGFR > 60.00
[2023-05-17] MEDS: XOPENEX 1.25 MG INHALANT SOLUTION INH (07:36)
[2023-05-17] MEDS: ATROVENT NEBULES 0.5 MG INH (07:36)
[2023-05-17] MEDS: NOVOLOG FLEXPEN 2 UNITS SC (07:54)
[2023-05-17] MEDS: NOVOLOG FLEXPEN-LOW RESISTANCE 1 UNITS SC ×2 (07:54→12:24)
[2023-05-17 07:55] VITALS: BP 138/82
[2023-05-17] MEDS: NORVASC 10 MG PO (07:55)
[2023-05-17] MEDS: FIRVANQ 125 MG PO ×2 (07:55→12:56)
[2023-05-17] MEDS: THERAGRAN 1 TABLET PO (07:55)
[2023-05-17] MEDS: MUCINEX 600 MG PO (07:55)
[2023-05-17] MEDS: MEPRON SUSPENSION 1500 MG PO (07:55)
[2023-05-17] MEDS: VFEND 200 MG PO (07:55)
[2023-05-17] MEDS: ZITHROMAX 500 MG PO (07:55)
[2023-05-17] MEDS: SOLU-MEDROL PF 50 MG IV (07:56)
[2023-05-17] MEDS: PROTONIX 40 MG PO (07:56)
[2023-05-17] MEDS: VITAMIN B-12 1000 MCG PO (07:56)
[2023-05-17] MEDS: VALTREX 1000 MG PO (07:56)
[2023-05-17] MEDS: VITAMIN D3 (cholecalciferol) 25 MCG PO (07:56)
[2023-05-17] MEDS: PEPCID 20 MG PO (07:56)
[2023-05-17 08:15] VITALS: BP 138/82
[2023-05-17 09:03] VITALS: BP 112/65; BP 123/78; BP 143/71; PULSE 100; PULSE 92; PULSE 96
--- NOTE | 2023-05-17 09:33 | W.PN.HOSP.TC ---
Addendum entered and electronically signed by Cb Ybarra MD 05/17/23 17:06:
Dictation- [id number]
Original Note:
Today's Communication/Plan
-
Await [facility] transfer
Assessment / Plan
Assessment / Plan
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 October 2022 patient had fevers treated with meropenem, Zithromax steroids and vancomycin. He was
discharged on oxygen but he has been off of oxygen since then.
He has a chronic cough. Recently had some mucus production increased shortness of breath. Saw PCP on tested for COVID flu and RSV which were negative reportedly. Chest x-ray showed bilateral infiltrates and was started on Levaquin. He
has not felt better with antibiotics and he noted that his pulse ox was falling.
He stated he was about to stop Atovaquone as OP , but then got started here .
Patient also states that he has had issues with waking up multiple times at nighttime to pass urine and then he also will have a bowel movement along with that. Patient is not on tacrolimus since March 2022
CVS: S1-S2 normal
Chest:few rales left base
Abdomen: Soft, NT / Bowel sounds present
Extremities: No edema
# Acute hypoxic respiratory failure
Currently on 2 L of oxygen
Reported saturation 70s at home,Mid 80s in the ER
Bilateral pulmonary infiltrates-unknown etiology -GVHD is on the differential along with infection.
Unlikely fungal/PCP given he was on prophylaxis. He was also on valacyclovir prophylaxis.
Started on steroids and Zithromax
Sputum culture if possible, Legionella and pneumococcal antigens neg.
COVID and influenza negative
Respiratory viral panel-negative
Spoke to 05/15/23 , transfer initiated. Waiting for a bed
May need bronchoscopy at [place]
Pulmonary and infectious disease following
# MDS
Status post chemotherapy at [place] in May [address] Bland
Bone marrow transplant 09/21/2022
October 2022-needed antibiotics meropenem, Zithromax, vancomycin ,etanercept and steroids for fevers
Off prednisone since December 2022
Off tacrolimus since March 2023
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
# Leukocytosis likely secondary to steroids
# C. difficile colitis-March 2023 treated with vancomycin
Currently on vancomycin twice daily-was diagnosed after a colonoscopy in [place] and has remained on this since then
Vanco changed to Q8H
# Hyperglycemia-was on insulin when he was on steroids. Blood sugars and use insulin as needed. HbA1C 6.0
Accu checks
AC Novolog 2 to be increased to 3
# Hyperlipidemia-continue atorvastatin
# Anemia-likely secondary to chronic disease
Iron studies noted
# Hypertension-continue amlodipine
# Benign tremors-worse since on steroids. Patient states that he has tried propranolol in the past but it made his asthma worse. He also tried another medicine which he cannot think of the name.
He wants to just watch it for now.
# Frequent urination at night-recommended prostate evaluation as outpatient with urology
# Chronic cough/asthma
On budesonide, ipratropium, levalbuterol twice daily as outpatient
# Sleep apnea-not on treatment
# Cu-pusaxm-ofhqcwuuiu cigars stopped years ago
# DVT prophylaxis-Lovenox
# Full code
Discussed with nursing
Discussed with from patient's phone
[facility] transplant physician Sandra White - [phone]
( He also sees Marely Lincoln NP)
Anticipated Discharge: Today
Subjective/Interval History
-
Date of Service: May 17, 2023
Objective Data
-
Labs:
Laboratory Results
05/17/23
06:28
Sodium 142
Potassium 4.0
Chloride 107
Carbon Dioxide 26
BUN 34 H
Creatinine 0.9
Glucose 166 H
Calcium 8.8
Vital Signs:
Vital Signs
Temp Pulse Resp BP Pulse Ox
96.6 F L 103 20 138/82 95
05/17/23 07:55 05/17/23 07:55 05/17/23 07:55 05/17/23 07:55 05/17/23 07:55
I&O
05/16/23 05/17/23 05/18/23
06:59 06:59 06:59
Intake Total 1260 / 1260 1979
Balance 1260 / 1260 1979
--- NOTE | 2023-05-17 10:25 | W.PN.ID1 ---
Addendum entered and electronically signed by Christine Concepcion MD 05/17/23 15:10:
currently toxin negative for C diff - he is likely still colonized and would NOT fully stop oral vanc, but returning to prophylactic doses is reasonable and less likely to cause further dysbiosis/antibiotic associated diarrhea
cyrpto/giardia also negative
stool culture pending
there has been some uptick in norovirus (as is common seasonally) - will also check norovirus
oral vanc returned to BID dosing
if no cause found then would attribute increased soft stool to antibiotic associated diarrhea
Original Note:
Date of Service
Date of Service: May 17, 2023
Today's Communication
repeat inflammatory markers, procalcitonin, CXR tomorrow if he remains in house
pending transfer
- recheck C Diff - interested to see if toxin positive at this time - would help direct management, would not stop suppression if negative
- stool culture
- cyrpto/giardia ags
- increased vancomycin to QID
- antibiotic associated diarrhea on the differential
Assessment / Plan
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
Immunosuppression
Pneumonia
H/o Lung gvhd
H/o C difficile
ET
- less O2 requirements; using acapella but not producing sputum
- blood cultures x2 no growth to date
- repeat CXR and inflammatory markers sunday if he remains in house
- continue on ppx with atovaquone, valacyclovir, voriconazole, oral vancomycin
- continue azithromycin for now (lower risk of recurrent c diff)
- c/w steroids
- for transfer for further workup including bronchoscopy with biopsy, cultures
Relapse of Chronic Diarrhea
Recent C diff
- recheck C Diff - interested to see if toxin positive at this time - would help direct management, would not stop suppression if negative
- stool culture
- cyrpto/giardia ags
- increased vancomycin to QID
- antibiotic associated diarrhea on the differential
Chief Complaint
-: Pneumonia and Other (Immunosuppression)
Subjective / Review of Systems
minimal hypothermia this afternoon
bp stable
intermittent minimal tachycardia
saturating well on 2L - desaturating less with ambulation - walking around the room
cr stable
oral vancomycin dose changed to TID per IM service
stool no longer formed 'muddy'
no abdominal pain or blood in stools, no fevers
Vital Signs / Physical Exam
Vital Signs
Vital Signs
Temp Pulse Resp BP Pulse Ox
96.6 F L 103 20 138/82 95
05/17/23 07:55 05/17/23 07:55 05/17/23 07:55 05/17/23 07:55 05/17/23 07:55
Physical Exam
Constitutional: No Acute Distress and Chronically Ill
Cardiovascular: Regular Rate and S1/S2; Negative Murmur or Rub
Pulmonary: Clear and Symmetric; Negative Wheezes or Rales
Gastrointestinal: Soft, Non Tender, Distended, Normal Bowel Sounds, No Rebound and No Guarding
Skin: Warm and Dry; Negative Rash or Jaundice
Neurological: Awake
Objective Data
Lab Data
Lab Results
05/16/23 05:43
05/17/23 06:28
ESR 96 mm/hour (0-20) H 05/16/23 05:43
Estimated Creat Clear 79 ml/min 05/17/23 06:28
Lactic Acid 0.9 mmol/L (0.7-2.0) 05/13/23 04:31
Total Bilirubin 0.5 mg/dl (0.2-1.3) 05/13/23 04:31
AST 43 U/L (17-59) 05/13/23 04:31
ALT 49 U/L (0-50) 05/13/23 04:31
Alkaline Phosphatase 159 U/L (38-126) H 05/13/23 04:31
C-Reactive Protein 54.60 mg/L (0.0-10.00) H 05/16/23 05:43
Most recent labs reviewed.
Micro Results:
05/13/23 17:44 Blood Culture - Preliminary
Blood/Venous No Growth in 72 hours- Final report to follow
05/13/23 16:31 Blood Culture - Preliminary
Blood/Venous No Growth in 72 hours- Final report to follow
05/15/23 07:28 Respiratory Culture - Final
Sputum Gram Stain - Final
05/14/23 09:01 Legionella Urinary Antigen - Final
Urine Negative for Legionella pneumophila Serogroup 1 antigen.
A negative result does not rule out the possiblity of
Legionella infection due to other serogroups or species of
Legionella. Clinical correlation is recommended.
Streptococcus pneumoniae Antigen (M - Final
Negative for Streptococcus pneumoniae antigen.
A negative result does not exclude infection with
Streptococcus pneumoniae. Clinical correlation is
recommended.
05/13/23 16:51 Influenza Type A (PCR) - Final
Nasalpharynx Not Detected
Influenza Type A (H1) (PCR) - Final
Not Detected
Influenza Type A (H3) (PCR) - Final
Not Detected
Influenza Type B (PCR) - Final
Not Detected
Resp Syncytial Virus Type A (PCR) - Final
Not Detected
Resp Syncytial Virus Type B (PCR) - Final
Not Detected
Adenovirus DNA (PCR) - Final
Not Detected
Human Metapneumovirus (PCR) - Final
Not Detected
Parainfluenza Virus Type 1 (PCR) - Final
Not Detected
Parainfluenza Virus Type 2 (PCR) - Final
Not Detected
Parainfluenza Virus Type 3 (PCR) - Final
Not Detected
Parainfluenza Virus Type 4 - Final
Not Detected
Rhinovirus (PCR) - Final
Not Detected
05/13/23 05:28 Influenza Types A & B (YANELIS) - Final
Nasal Swab Negative for Influenza A & B, NAAT
Negative results must be combined with clinical observations
and patient history.
Nucleic Acid Amplification test (NAAT)performed on the
SiOx platform.
--- NOTE | 2023-05-17 11:30 | CM ---
Reviewed the chart notes. Plan remains for transfer to [facility] once bed available. CM continues to be available to patient/family and is monitoring medical plan for needs at discharge.
Plan: Transfer to [facility] when bed becomes available.
[2023-05-17 11:40] LABS: Glucose - Point of Care 192 mg/dl (70-99)
[2023-05-17 11:44] VITALS: BP 141/76
[2023-05-17] MEDS: NOVOLOG FLEXPEN 3 UNITS SC (12:24)
--- NOTE | 2023-05-17 12:50 | W.PN.PUL3 ---
Today's Communication / Plan
-
Decrease Solu-Medrol
Continue to watch blood sugars
Continue azithromycin
Wean down oxygen
Waiting for [facility] transfer
Assessment
-
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
tacrolimus since March 2023, now presents with 6 days of increased shortness of breath, low-grade fevers, hypoxia, started on Levaquin therapy 05/10/2023, now with progressive hypoxia and progressive interstitial infiltrates, admitted 05/13/2023
Acute hypoxic respiratory failure- currently on 3L.
Saturation in the 70s at home
86% on room air in the ED
Bilateral pulmonary infiltrates
Progressive in 72 hours
-
BMT October 2022 (Kimberlee [facility]emayor at [facility])
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
Chemotherapy (Azacitidine) at [facility], April 2022 (Dr. Bland)
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
Treated with meropenem/azithromycin/vancomycin/steroids and etanercept
Off tacrolimus therapy since March 2023
Maintained on atovaquone, valacyclovir, voriconazole prophylaxis
Off prednisone since 12/29/2022
History of C. difficile colitis March 2023
Hospitalized at [facility]
On oral vancomycin
Conditions present prior to admission
Sleep apnea, not treated
Impaired fasting glucose
Required insulin therapy while on steroids
History of colon polyps
Hyperlipidemia
Essential tremor
11-[id number]-[id number] history of smoking, quit age 23
Cough variant asthma
Family history of asthma
Plan/recommendations
O2 supplementation improved down to 2 L. Usually not on oxygen at home.
Remains afebrile.
Patient appears nontoxic, ambulatory in the room.
Chest x-ray this morning 05/16/2023: Persistent but improved bilateral infiltrates.
-
Prior history:
Salient features are progressive bilateral interstitial infiltrates in the setting of Levaquin therapy, hypoxia which is progressive
Patient has been off steroids since December 2022
On atovaquone for PCP prophylaxis.
Remains on voriconazole, acyclovir prophylaxis
Patient not able to get vaccines due to bone marrow transplant
Of note, off tacrolimus since March 2023
-
Differential diagnosis includes inflammatory process versus infectious versus opportunistic infection. Ayevv-bcskub-dwwl disease in the differential.
Continue with current plan:
Empirically started on IV corticosteroids at the suggestion of transplant center at [facility] over the weekend.(Defer steroids to transplant team once he is transferred) seems to be tolerating and improving. Will decrease
Solu-Medrol to 40 mg IV every 8 hours today 05/17/2023. Ongoing taper once he gets transferred to [facility].
Chest x-ray 05/16/2023: Stable but improved bilateral infiltrates. No new abnormalities.
-
Continue to wean down oxygen as able-oxygenation has not worsened. Currently at 2 L. Improved.
All cultures negative so far: On azithromycin. Case discussed with infectious disease
Case discussed with primary team.
Transplant team at [facility] also has been contacted. They were okay with trial of steroids. They are suggesting transfer to [facility].
Bronchoscopy with transbronchial biopsies may be indicated, if there is no improvement. Can be addressed at [facility].
-
Negative Legionella and pneumococcal urine antigens
Influenza/COVID-negative, respiratory viral panel-all negative.
On Zithromax per infectious disease.
It is noted that procalcitonin is normal
Oral vancomycin, voriconazole, valacyclovir, atovaquone continues- prophylaxis.
-
History of asthma, follows up with Dr. Huggins. Not bronchospastic on exam.
Continue Xopenex
Continue Atrovent
Hold budesonide while on high doses of steroids., Start once steroids are being tapered down.
Follow blood sugars while on steroids. Patient required insulin therapy while on steroids in the past
Patient updated in detail by Dr. Carvajal 05/14/2023, 05/15/2023 and 05/16/2023
-
Follow-up with Dr. Huggins after discharge
-
Transfer process to [facility] started.
Will cont. to follow while here at .
Subjective Data
-
Date of Service:
Date of Service: May 17, 2023
Chief Complaint: Pulmonary Follow Up (Acute hypoxemic respiratory failure-bilateral infiltrates on CAT scan. Immunosuppression)
Subjective:
No new complaints
Remains on low rate supplemental oxygen
Ambulatory to the restroom
Denies hemoptysis
Denies chills.
Review of Systems
General: Fever (n)
Cardiopulmonary: Dyspnea (improved) and Cough (imiproved)
GI: Abdominal Pain (n), Nausea (n) and Vomiting (n)
Objective Data
Data Reviewed
Vital Signs / I&O / Oxygen:
Vital Signs
Temp Pulse Resp BP Pulse Ox
97.9 F 101 18 141/76 96
05/17/23 11:44 05/17/23 11:44 05/17/23 11:44 05/17/23 11:44 05/17/23 11:44
Intake and Output
05/16/23 05/17/23 05/18/23
06:59 06:59 06:59
Intake Total 1260 / 1260 1979
Balance 1260 / 1260 1979
SaO2 96
Nasal Cannula flow liters per 2
minute
Physical Exam
General: Respiratory Distress (none at rest) and Other (Able to speak in full sentences)
HEENT: Normocephalic
Cardiovascular: S1-S2
Respiratory: Wheeze (n), Crackles and Non-Labored Respirations
GI: Soft and Non Distended
Neurology: Awake and Alert
Skin: Warm
Labs/Micro/Reports
Lab Data
05/16/23 05:43
05/17/23 06:28
Microbiology
05/13/23 17:44 Blood/Venous Blood Culture - Preliminary
No Growth in 72 hours- Final report to follow
05/13/23 16:31 Blood/Venous Blood Culture - Preliminary
No Growth in 72 hours- Final report to follow
05/15/23 07:28 Sputum Respiratory Culture - Final
05/15/23 07:28 Sputum Gram Stain - Final
05/14/23 09:01 Urine Legionella Urinary Antigen - Final
Negative for Legionella pneumophila Serogroup 1 antigen.
A negative result does not rule out the possiblity of
Legionella infection due to other serogroups or species of
Legionella. Clinical correlation is recommended.
05/14/23 09:01 Urine Streptococcus pneumoniae Antigen (M - Final
Negative for Streptococcus pneumoniae antigen.
A negative result does not exclude infection with
Streptococcus pneumoniae. Clinical correlation is
recommended.
[2023-05-17] MEDS: SOLU-MEDROL PF 40 MG IV (15:11)
[2023-05-17] MEDS: FLUSH (NSS) 2 FLUSH IV (15:12)
[2023-05-17 15:13] VITALS: BP 136/72
--- NOTE | 2023-05-17 18:36 | PTCARENOTE ---
pt transferred to [facility] today with ALS ambulance, report given to Sandra FABIAN.
== END 2023-05-17 17:30 | disposition short-term general hospital (02) | DRG 193 ==
LOC: 2 NORTH 06:33
PROVIDERS: ADMITTING PHYSICIAN Hospitalist; ATTENDING PHYSICIAN Hospitalist; CONSULT PHYSICIAN Internal Medicine Critical Care Medicine; CONSULT PHYSICIAN Student in an Organized Health Care Education/Training Program; EMERGENCY PHYSICIAN Emergency Medicine; FAMILY PHYSICIAN Nurse Practitioner Family
DX: J18.9 Pneumonia, unspecified organism (principal); J96.01 Acute respiratory failure with hypoxia; D84.9 Immunodeficiency, unspecified; Z94.81 Bone marrow transplant status; A04.72 Enterocolitis due to Clostridium difficile, not specified as recurrent; D89.813 Graft-versus-host disease, unspecified; Z11.52 Encounter for screening for COVID-19; D46.9 Myelodysplastic syndrome, unspecified; J45.991 Cough variant asthma; I11.9 Hypertensive heart disease without heart failure; E78.00 Pure hypercholesterolemia, unspecified
CPT/HCPCS: 71045; 71046; 71250; 80048; 80053; 82607; 82728; 82962; 83036; 83540; 83550; 83605; 83615; 83880; 84145; 84484; 85025; 85027; 85652; 86140; 87040; 87045; 87046; 87205; 87324; 87328; 87329; 87427; 87449; 87502; 87633; 87811; 87899; 93005; 93306; 94640; 94667; 94668; 97162; 99285

== ENCOUNTER → 2023-05-23 12:37 | Outpatient (REF) | payer MEDICARE, OTHER, SELFPAY | LOC: HWRAD 12:37 | PROVIDERS: ATTENDING PHYSICIAN Nurse Practitioner Family | DX: M54.50 Low back pain, unspecified (principal); M25.551 Pain in right hip | CPT/HCPCS: 72110; 73502 ==

== ENCOUNTER 2023-05-27 14:09 | Emergency (ER) | payer MEDICARE, OTHER, SELFPAY ==
[2023-05-27] VITALS (9 sets, daily range): BP systolic 92–122; BP diastolic 55–75; BMI 24.4
--- NOTE | 2023-05-27 15:34 | ED.GENMED ---
History of Present Illness
General
Chief Complaint: Breathing Problem
Time Seen by Provider: 05/27/23 15:08
Travel History
Have you had any contact with someone who has COVID-19?: No
Do you have any symptoms of coronavirus? Fever > 100 degrees, chills, cough, shortness of breath, sore throat, loss of taste or smell, muscle aches, or headache?: No
History of Present Illness
History of Present Illness:
72-year-old male with history of myelodysplasia status post bone marrow transplant September 2022 presents to the emergency department for evaluation of worsening exertional shortness of breath. Patient was initially admitted to this hospital on
May 13 due to similar symptoms, had been treated as an outpatient with levofloxacin but due to progressive worsening hypoxia he presented to the emergency department where he was started on azithromycin and high-dose steroids. He was noted to
have significant infiltrates on imaging and required supplemental oxygen that was able to be weaned down however due to consideration of ahpjg-oekdbe-cgmx disease he was transferred from this hospital to the [facility] April.
His antibiotics were switched to amoxicillin and he completed a course of amoxicillin as an outpatient 3 days ago. He has informed me that he felt better while taking antibiotics however his spouse states that he did not appear to be at all better
from her vantage point. Over the past 2 days he has noted progressive worsening of exertional hypoxia even with added supplemental oxygen, currently not using 4 L nasal cannula. Apparently his exertional oxygen saturations while wearing
supplemental oxygen today were as low as 60%. He denies any chest pain or leg swelling. Denies any fevers or chills. He is no longer on antibiotics or steroids but remains on prophylactic atovaquone, valacyclovir, and voriconazole.
Past History
Past History
ED Past Medical History: Asthma, HTN, Hypercholesterolemia, NIDDM (Impaired fasting glucose) and Other (Pneumonia, myelodysplastic disorder status post stem cell transplant September 2022; prior history of C. difficile colitis)
ED Past Surgical History: Appendectomy and Other (Bone marrow transplant September 2022)
Social History
Tobacco: Former smoker (Quit smoking over 10 years ago)
Alcohol: None
Personal:
Living: with family
Employment: Retired
Family History
Family History: Other (Noncontributory)
Review of Systems
Review of Systems
Allergies reviewed?: Yes
All Other Systems: ROS reviewed and negative except as documented in HPI and ROS
Phy Exam
Physical Exam
Physical Exam:
GEN: Well appearing, NAD, WDWN
Eyes: PERRLA, EOMs intact, no scleral icterus
HENT: NCAT, oral mucosa moist, no JVD, no cervical adenopathy.
Lungs: Normal respiratory effort while at rest, faint interstitial crackles heard throughout but otherwise lungs are globally clear, no increased respiratory effort
Cardiac: Mildly tachycardic, regular
Abdomen: S, NT, ND, NABS, no masses or hepatosplenomegaly
Neuro: AO x 3, no focal deficits to BUE/BLE, normal sensation throughout
MSK: No gross deformity or ecchymosis. No edema. No digital clubbing
Skin: No rashes, petechiae. Normal color, no pallor or jaundice.
Psych: Calm, cooperative, proper hygiene
Scores
Heart Failure Risk
Heart Failure Risk Score: Not Applicable
Course
Orders/Labs/Results
Orders:
Orders
05/27/23 15:34
Electrocardiogram (*1) Urgent
Reason for Study: Shortness of Breath
EKG- Treatment ONCE
CR Chest - 2 Views Urgent
Comment:
Reason For Exam: SOB
05/27/23 17:10
Complete Blood Count/With Diff Urgent
Comprehensive Metabolic Panel Urgent
Lactic Acid Q4H
Comment: CANCEL 2nd LACTIC ACID IF 1st LACTIC ACID IS LESS THAN 2
NT-proBNP Urgent
Troponin I Urgent
Blood Culture Q30M
LUX Source: Blood/Venous
Specimen Description:
05/27/23 17:54
D-Dimer Urgent
Lactic Acid Q4H
Comment: CANCEL 2nd LACTIC ACID IF 1st LACTIC ACID IS LESS THAN 2
Prothrombin Time Urgent
Blood Culture Q30M
LUX Source: Blood/Venous
Specimen Description:
05/27/23 18:22
CT Chest Pe Study Urgent
Comment:
Reason For Exam: SOB, elevated dimer
Abnormal Lab Results
05/27/23 05/27/23
17:10 17:54
WBC 11.7 H 10^3/uL
(4.8-10.8)
RBC 2.55 L 10^6/uL
(4.70-6.10)
Hgb 9.4 L g/dL
(13.0-18.0)
Hct 27.1 L %
(39.0-52.0)
MCV 106.3 H fL
(80.0-94.0)
MCH 36.9 H pg
(27.0-31.0)
Abs Immat Gran (auto) 0.1 H 10^3/uL
(0-0.05)
Absolute Neuts (auto) 10.0 H 10^3/uL
(1.4-6.5)
Absolute Lymphs (auto) 0.4 L 10^3/uL
(1.2-3.4)
Absolute Monos (auto) 0.7 H 10^3/uL
(0.1-0.6)
Immature Gran % 0.9 H %
(0-0.5)
Neutrophils % 85.8 H %
(42.2-75.2)
Lymphocytes % 3.5 L %
(20.5-51.1)
D-Dimer 1.29 H ug/mlFEU
(0.00-0.50)
BUN 23 H mg/dl
(9-20)
Glucose 119 H mg/dl
(70-99)
Lactic Acid 0.5 L mmol/L
(0.7-2.0)
Alkaline Phosphatase 129 H U/L
(38-126)
Total Protein 5.8 L g/dl
(6.3-8.2)
Albumin 3.3 L g/dl
(3.5-5.0)
05/27/23 17:10
05/27/23 17:10
Vital Signs
Initial and Last Documented VS:
Initial Vital Signs
Temp Pulse Resp Pulse Ox
98.6 F 104 20 88
05/27/23 14:12 05/27/23 14:12 05/27/23 14:12 05/27/23 14:12
Last Documented Vital Signs
Temp Pulse Resp BP Pulse Ox
98.4 F 101 24 117/71 92
05/27/23 18:00 05/27/23 22:00 05/27/23 22:00 05/27/23 22:00 05/27/23 22:00
MDM/Problems Addressed
MDM/Problems Addressed:
Patient is markedly hypoxia with even minimal exertion. Chest x-ray independently interpreted by me shows a significant worsening bilateral interstitial infiltrates. He has been treated with multiple courses of antibiotics as well as steroids.
Does not present with infectious symptoms at this time. Ultimately we must be concerned for potential fwyfr-kztbux-fwrp disease given the persistence of the symptoms and worsening despite adequate antibiotics and steroids. Discussed the case with
the oncology team at hospital [facility], Dr. Allen, and he is excepted as a transfer, remained stable in the emergency department. Opted to treat with antibiotics or steroids at this time given his clinical stability while
at rest
Comment
Comment:
EKG independently interpreted by me shows normal sinus rhythm at a rate of [address] changes concerning for ischemia
Chest x-ray independently interpreted by me shows significant worsening of bilateral interstitial infiltrates particularly the left upper lobe
*Critical Care Note
Total Time (30-74mins, 75-104mins- exclusive of procedures): Not Applicable
ED Attending Note
-
Portions of this chart may have been created with voice recognition software.� Occasional wrong word or��sound alike� substitutions may have occurred due to the inherent limitations of voice recognition software.
Discharge Plan
Departure
Patient Disposition: Acute Care Hospital
Date of Disposition: 05/27/23
Time of Disposition: 19:02
Discharge Problem:
Acute hypoxemic respiratory failure
Prescriptions:
No Action
atorvastatin 10 mg Tablet
10 mg PO QPM
valacyclovir 1 gram Tablet
1,000 mg PO DAILY
vancomycin 125 mg Capsule
125 mg PO Q12H
famotidine 20 mg Tablet
20 mg PO BID
amlodipine 10 mg Tablet
10 mg PO DAILY
levalbuterol HCl 1.25 mg/3 mL Solution For Nebulization
1.25 mg INHALATION R DAILY
multivitamin with minerals Tablet
1 tab PO DAILY
hydrocortisone 2.5 % Ointment
1 applic TOPICAL TID
Patient Comments:
on head
Rx Instructions:
apply to rash on face
ipratropium bromide 0.02 % Solution
2.5 ml INHALATION R BID
atovaquone 750 mg/5 mL Suspension
1,500 mg PO DAILY
voriconazole 200 mg Tablet
300 mg PO BID
cholecalciferol (vitamin D3) 25 mcg (1,000 unit) Tablet
25 mcg PO DAILY
heparin lock flush (porcine) [heparin lock flush] 10 unit/mL Solution
10 unit IV DAILY
loperamide [Imodium] 2 mg Capsule
2 mg PO Q6H PRN (Reason: loose stool)
budesonide 0.5 mg/2 mL suspension for nebulization
0.5 mg inhalation R DAILY
sodium chloride 0.9 % (flush) Syringe
10 ml IV DAILY
Referrals:
Isa Jazmyn,[place], MACHINE ASSEMBLER SUPERVISOR [Family Provider] -
Hospital Transfer
Other hospital: [facility]
I certify that the patient requires transfer: Yes
Discussed case with accepting physician: Tiffany
Reason for transfer: higher level of care
Interventions
Interventions:
*Risk Screen - Suicide Last Done: 05/27/23 14:12
*General Assessment Last Done: 05/27/23 18:00
*Neglect/Abuse Screening Last Done: 05/27/23 14:12
ED- Fall Risk Assessment Last Done: 05/27/23 15:22
*ED COVID-19 Vaccine History Last Done: 05/27/23 14:12
*Nursing Disposition Last Done: 05/27/23 18:00
ED- Cardiac Assessment Last Done: 05/27/23 15:22
ED- Pulmonary Assessment Last Done: 05/27/23 15:22
[2023-05-27 17:32] LABS: % Basophils 0.3 % (0-2); % Eosinophils 3.2 % (0-6); % Immature Granulocytes 0.9 % (0-0.5); % Lymphocytes 3.5 % (20.5-51.1); % Monocytes 6.3 % (1.7-9.3); % Neutrophils 85.8 % (42.2-75.2); Absolute Eosinophils 0.4 10^3/uL (0-0.7); Absolute Immature Granulocytes 0.1 10^3/uL (0-0.05); Absolute Lymphocytes 0.4 10^3/uL (1.2-3.4); Absolute Monocytes 0.7 10^3/uL (0.1-0.6); Hematocrit 27.1 % (39.0-52.0); Hemoglobin 9.4 g/dL (13.0-18.0); Mean Corp Hgb Conc. 34.7 g/dL (33.0-37.0); Mean Corpuscular Hgb 36.9 pg (27.0-31.0); Mean Corpuscular Volume 106.3 fL (80.0-94.0); Mean Platelet Volume 10.3 fL (7.4-10.4); Nucleated Red Blood Cells % 0 % (-); Platelet Count 253 10^3/uL (130-400); Red Blood Cell Count 2.55 10^6/uL (4.70-6.10); Red Cell Dist. Width 13.8 % (11.5-14.5); White Blood Cell Count 11.7 10^3/uL (4.8-10.8)
[2023-05-27 17:34] LABS: Lactic Acid 0.5 mmol/L (0.7-2.0)
[2023-05-27 17:35] LABS: ALT (SGPT) 28 U/L (0-50); AST (SGOT) 25 U/L (17-59); Albumin 3.3 g/dl (3.5-5.0); Alkaline Phosphatase 129 U/L (38-126); Blood Urea Nitrogen 23 mg/dl (9-20); Calcium 8.9 mg/dl (8.4-10.2); Carbon Dioxide 25 mmol/L (22-30); Chloride 103 mmol/L (98-107); Estimated Creatinine Clearance 79 ml/min; Glucose 119 mg/dl (70-99); Potassium 4.4 mmol/L (3.5-5.1); Sodium 135 mmol/L (135-145); Total Bilirubin 0.3 mg/dl (0.2-1.3); Total Protein 5.8 g/dl (6.3-8.2); eGFR > 60.00
[2023-05-27 17:46] LABS: NT-proBNP 218 pg/ml; Troponin I 0.029 ng/ml
[2023-05-27 18:13] LABS: Lactic Acid 1.6 mmol/L (0.7-2.0)
[2023-05-27 18:14] LABS: INR 1.06; PT 13.6 Sec (11.4-14.6)
[2023-05-27 18:16] LABS: D-Dimer 1.29 ug/mlFEU (0.00-0.50)
== END 2023-05-27 18:00 | disposition short-term general hospital (02) ==
LOC: EMR 14:09
PROVIDERS: Physician Assistant; EMERGENCY PHYSICIAN Emergency Medicine; FAMILY PHYSICIAN Nurse Practitioner Family
DX: J96.01 Acute respiratory failure with hypoxia (principal); I10 Essential (primary) hypertension; Z87.891 Personal history of nicotine dependence
CPT/HCPCS: 99285; 71046; 71275; 80053; 83605; 83880; 84484; 85025; 85379; 85610; 87040; 93005; Q9967